=== PATIENT | female | born 1990 | race Caucasian/White ===

== ENCOUNTER 2016-06-28 01:16 | Emergency (ER) | payer SELFPAY ==
[~2016-06-28] VITALS: Ht 157.5 cm; Wt 80.0 kg
[~2016-06-28 01:16] MED LIST: CITA20 PO; IBUP600T26 PO; LEVO750T33 PO; LORA-474 PO; ONDA4; ORTHTAB3 PO; RANI1TAB5 PO
[2016-06-28 01:22] VITALS: BP 117/84; PULSE 88; RESP 18; TEMP 98.4; O2SAT 98
[2016-06-28 01:56] LABS: AUTOMATED NEUTROPHIL # 5.4 TH/MM3 (1.8-7.7); BASOPHIL # 0.1 TH/MM3 (0-0.2); EOSINOPHIL # 0.1 TH/MM3 (0-0.4); HEMATOCRIT 38.2 % (35.0-46.0); HEMO FLAGS DIFF FINAL; LYMPHOCYTE # 2.5 TH/MM3 (1.0-4.8); MEAN CELL VOLUME 86.1 FL (80.0-100.0); MEAN CORPUSCULAR HEMOGLOBIN 29.9 PG (27.0-34.0); MEAN CORPUSCULAR HGB CONC 34.7 % (32.0-36.0); MONO % 8.2 % (0.0-8.0); NEUT % 61.8 % (16.0-70.0); PLATELET COUNT 298 TH/MM3 (150-450); RED BLOOD COUNT 4.44 MIL/MM3 (4.00-5.30); RED CELL DISTRIBUTION WIDTH 12.7 % (11.6-17.2); WHITE BLOOD COUNT 8.8 TH/MM3 (4.0-11.0)
--- NOTE | 2016-06-28 02:16 | PD ---
HPI Chief Complaint: Psychiatric Symptoms Time Seen by Provider: 02:16 Travel History International Travel<30 days: No Contact w/Intl Traveler<30days: No Traveled to known affect area: No History of Present Illness HPI 26-year-old female presents to emergency department under Mccall act for psychiatric evaluation. Patient got into an argument with her boyfriend and said comments about wanting to kill herself. States that she has a history of depression and does not take medication. Patient states that she does not want to kill herself or anybody else. She states that she was angry and wants to go home. She denies illicit drug use. Reports occasional alcohol consumption. She reports no medical history. PFS Past Medical History Blood Disorders: No Anxiety: Yes Depression: Yes Cancer: No Cardiovascular Problems: No Diminished Hearing: No Endocrine: No GERD: Yes Implanted Vascular Access Dvce: Yes Musculoskeletal: No Neurologic: Yes Psychiatric: Yes Reproductive: No Respiratory: No Immunizations Current: Yes ?: Unknown LMP: 07/08/16 Past Surgical History Tonsillectomy: Yes Other Surgery: Yes (tonsilectomy) Social History Alcohol Use: Yes (occ) Tobacco Use: No Substance Use: No Allergies-Medications (Allergen,Severity, Reaction): Coded Allergies: No Known Allergies (Verified , 06/28/16) Reported Meds & Prescriptions Reported Meds & Active Scripts Active No Active Prescriptions or Reported Medications Review of Systems Except as stated in HPI: all other systems reviewed are Neg Physical Exam Narrative GENERAL: Well-nourished female patient, ambulatory and in no acute distress SKIN: Warm and dry. HEAD: Atraumatic. Normocephalic. EYES: Pupils equal and round. No scleral icterus. No injection or drainage. ENT: No nasal bleeding or discharge. Mucous membranes pink and moist. NECK: Trachea midline. No JVD. CARDIOVASCULAR: Regular rate and rhythm. No murmur appreciated. RESPIRATORY: No accessory muscle use. Clear to auscultation. Breath sounds equal bilaterally. GASTROINTESTINAL: Abdomen soft, non-tender, nondistended. Hepatic and splenic margins not palpable. MUSCULOSKELETAL: No obvious deformities. No clubbing. No cyanosis. No edema. NEUROLOGICAL: Awake and alert. No obvious cranial nerve deficits. Motor grossly within normal limits. Normal speech. Data Data Last Documented VS Vital Signs Date Time Temp Pulse Resp B/P Pulse Ox O2 Delivery O2 Flow Rate FiO2 06/28/16 01:30 97 18 06/28/16 01:22 98.4 117/84 98 Orders Complete Blood Count With Diff (06/28/16 01:19) Basic Metabolic Panel (Bmp) (06/28/16 01:19) Ed Urine Pregnancytest Poc (06/28/16 01:19) Psych Screen (06/28/16 01:19) Drug Screen, Random Urine (06/28/16 01:19) Alcohol (Ethanol) (06/28/16 01:19) Labs Laboratory Tests Test 06/28/16 06/28/16 01:40 02:25 White Blood Count 8.8 TH/MM3 Red Blood Count 4.44 MIL/MM3 Hemoglobin 13.3 GM/DL Hematocrit 38.2 % Mean Corpuscular Volume 86.1 FL Mean Corpuscular Hemoglobin 29.9 PG Mean Corpuscular Hemoglobin 34.7 % Concent Red Cell Distribution Width 12.7 % Platelet Count 298 TH/MM3 Mean Platelet Volume 7.5 FL Neutrophils (%) (Auto) 61.8 % Lymphocytes (%) (Auto) 28.0 % Monocytes (%) (Auto) 8.2 % Eosinophils (%) (Auto) 1.0 % Basophils (%) (Auto) 1.0 % Neutrophils # (Auto) 5.4 TH/MM3 Lymphocytes # (Auto) 2.5 TH/MM3 Monocytes # (Auto) 0.7 TH/MM3 Eosinophils # (Auto) 0.1 TH/MM3 Basophils # (Auto) 0.1 TH/MM3 CBC Comment DIFF FINAL Differential Comment Sodium Level 140 MEQ/L Potassium Level 4.0 MEQ/L Chloride Level 106 MEQ/L Carbon Dioxide Level 27.4 MEQ/L Anion Gap 7 MEQ/L Blood Urea Nitrogen 15 MG/DL Creatinine 0.85 MG/DL Estimat Glomerular Filtration 80 ML/MIN Rate Random Glucose 103 MG/DL Calcium Level 8.9 MG/DL Ethyl Alcohol Level LESS THAN 3 MG/DL Urine Opiates Screen NEG Urine Barbiturates Screen NEG Urine Amphetamines Screen NEG Urine Benzodiazepines Screen NEG Urine Cocaine Screen NEG Urine Cannabinoids Screen POS MDM Medical Decision Making Medical Screen Exam Complete: Yes Emergency Medical Condition: Yes Medical Record Reviewed: Yes Differential Diagnosis Mood disorder versus personality disorder versus adjustment reaction disorder Narrative Course 26-year-old female presents to emergency department for evaluation under Mccall act. Patient appears without distress. She is tearful and angry that she is here. Lab work is without acute concern. EtOH is less than 3. Toxicology is positive for cannabinoids. Patient is medically cleared to undergo psychiatric screening for further evaluation and disposition. Mental health screening discussed with the patient. Psychiatric screen ordered. Diagnosis Primary Impression: Adjustment disorder with depressed mood Scripts No Active Prescriptions or Reported Meds Condition: Meseret Angel Jun 28, 2016 02:16
[2016-06-28 02:21] LABS: ANION GAP 7 MEQ/L (5-15); BICARBONATE 27.4 MEQ/L (21.0-32.0); BLOOD UREA NITROGEN 15 MG/DL (7-18); CHLORIDE 106 MEQ/L (98-107); GLOMERULAR FILTRATION RATE 80 ML/MIN (>89); SODIUM (NA) 140 MEQ/L (136-145)
[2016-06-28 02:57] LABS: AMPHETAMINE, URINE NEG (NEG); BARBITURATES, URINE NEG (NEG); COCAINE, URINE NEG (NEG)
--- NOTE | 2016-06-28 09:33 | PD ---
History of Present Illness Chief Complaint: Psychiatric Symptoms Time Seen by Provider: 09:15 Travel History International Travel<30 Days: No Contact w/Intl Traveler<30days: No Known affected area: No Legal Status Legal Status: Mccall Act Mccall Act Signed By: Ramin Hartman History of Present Illness: History of Present Illness HPI 26-year-old female with no previous psychiatric history who presents to emergency department under Mccall act. As per the report the police responded to a call from a male who " was uncooperative" and reported he received text messages from the patient " that she was going to cut herself in an effort to end her life.As per Ed documentation reviewed and included here : " Patient got into an argument with her boyfriend and said comments about wanting to kill herself. States that she has a history of depression and does not take medication. Patient states that she does not want to kill herself or anybody else. She states that she was angry and wants to go home. She denies illicit drug use. Reports occasional alcohol consumption. " Patient seen in main ED. Awake, alert and oriented. Speech is clear and logical. There is no psychosis and no michelle. No suicidal or homicidal ideation. She reports that she was involved in an argument with her boyfriend ad " I just said that I was going to cut myself to make him feel what I was feeling. I had no plans to hurt myself or to hurt anyone else and I did not harm myself I just want to go home and go to work " EMR was reviewed. She has one previous visit to ED for alcohol intoxication. Current toxicology positive for cannabinoids. She is currently not in psychiatric treatment. PFSH Past Medical History Blood Disorders: No Anxiety: Yes Depression: Yes Cancer: No Cardiovascular Problems: No Diminished Hearing: No Endocrine: No GERD: Yes Implanted Vascular Access Dvce: Yes Musculoskeletal: No Neurologic: Yes Psychiatric: Yes Reproductive: No Respiratory: No Immunizations Current: Yes ?: Unknown LMP: 07/08/16 Past Surgical History Tonsillectomy: Yes Other Surgery: Yes (tonsilectomy) Psychiatric History Psychiatric History Hx Psychiatric Treatment: PT DENIES AT THIS TIME Has taken Celexa and Ativan in the pat. Last took 6 months ago. History of Inpatient Treatment: No Guns or firearms in home: No Social History Single female. Born in [place] Lives by herself. Has been in a relationship x 4 years. Works at [employer] x 12 years. Hx Alcohol Use: Yes (occ) Hx Tobacco Use: No Hx Substance Use: No (PT DENIES) Substance Use Type: Marijuana Hx of Substance Use Treatment: No Family Psychiatric History None reported. Allergies-Medications (Allergen,Severity, Reaction): Coded Allergies: No Known Allergies (Verified , 06/28/16) Reported Meds & Prescriptions Reported Meds & Active Scripts Active No Active Prescriptions or Reported Medications Review of Systems Except as stated in HPI: all other systems reviewed are Neg Exam Alert: Yes [place]: Person (ox4) Mood: Calm Affect: Euthymic Speech: Clear, Logical Eye Contact: Normal Memory Intact: Comment (not impaired) Hallucinations: Other (denies any) Delusions: No Suicidal: Ideation (denies any) Homicidal: Ideation (denies any) Insight/Judgement Fair. Not impaired MDM Medical Decision Making Medical Record Reviewed: Yes Assessment/Plan 26 year old female under a BA after her boyfriend contacted police. She sent him messages via text indicating she was thinking of hurting herself. This happened in context of an argument. She is denying any suicidal ideation, intent or plan and does not present imminent risk to herself or others. Cleared from psychiatric perspective for discharge. Discharge to home. I have recommended she contact her PCP who previously prescribed her medication for further treatment. Orders Complete Blood Count With Diff (06/28/16 01:19) Basic Metabolic Panel (Bmp) (06/28/16 01:19) Ed Urine Pregnancytest Poc (06/28/16 01:19) Psych Screen (06/28/16 01:19) Drug Screen, Random Urine (06/28/16 01:19) Alcohol (Ethanol) (06/28/16 01:19) Diet Regular Basic (06/28/16 Breakfast) Results Vital Signs Date Time Temp Pulse Resp B/P Pulse Ox O2 Delivery O2 Flow Rate FiO2 06/28/16 01:30 97 18 06/28/16 01:22 98.4 88 18 117/84 98 Laboratory Tests Test 06/28/16 06/28/16 01:40 02:25 White Blood Count 8.8 Red Blood Count 4.44 Hemoglobin 13.3 Hematocrit 38.2 Mean Corpuscular Volume 86.1 Mean Corpuscular Hemoglobin 29.9 Mean Corpuscular Hemoglobin 34.7 Concent Red Cell Distribution Width 12.7 Platelet Count 298 Mean Platelet Volume 7.5 Neutrophils (%) (Auto) 61.8 Lymphocytes (%) (Auto) 28.0 Monocytes (%) (Auto) 8.2 Eosinophils (%) (Auto) 1.0 Basophils (%) (Auto) 1.0 Neutrophils # (Auto) 5.4 Lymphocytes # (Auto) 2.5 Monocytes # (Auto) 0.7 Eosinophils # (Auto) 0.1 Basophils # (Auto) 0.1 CBC Comment DIFF FINAL Differential Comment Sodium Level 140 Potassium Level 4.0 Chloride Level 106 Carbon Dioxide Level 27.4 Anion Gap 7 Blood Urea Nitrogen 15 Creatinine 0.85 Estimat Glomerular Filtration 80 Rate Random Glucose 103 Calcium Level 8.9 Ethyl Alcohol Level LESS THAN 3 Urine Opiates Screen NEG Urine Barbiturates Screen NEG Urine Amphetamines Screen NEG Urine Benzodiazepines Screen NEG Urine Cocaine Screen NEG Urine Cannabinoids Screen POS Diagnosis Primary Impression: Adjustment disorder with depressed mood Psychiatrically Cleared: Yes Med/ Other Pt Specific Info: No Meds Exist/No RX given Prescriptions No Active Prescriptions or Reported Meds Condition: Stable Sonia Frank Jun 28, 2016 09:33
== END 2016-06-28 10:01 | disposition home or self-care (01) ==
LOC: NEPA 01:16
DX: F43.21 Adjustment disorder with depressed mood (principal); F41.8 Other specified anxiety disorders
CPT/HCPCS: 80048; 80307; 80320; 85025; 99284

== ENCOUNTER → 2016-10-15 | Outpatient (CLI) | payer MEDICAID ==
[~2016-10-15] MED LIST changes: -CITA20 PO; -IBUP600T26 PO; -LEVO750T33 PO; -LORA-474 PO; -ONDA4; -ORTHTAB3 PO; +PREN29TA PO; -RANI1TAB5 PO
== END ==
LOC: HPND 11:11
PROVIDERS: ATTEND Obstetrics & Gynecology
DX: Z36 Encounter for antenatal screening of mother (principal)
CPT/HCPCS: 36416; 76813

== ENCOUNTER 2016-10-26 23:01 | Emergency (ER) | payer MEDICAID ==
[~2016-10-26] VITALS: Ht 157.5 cm; Wt 75.0 kg
[2016-10-26 23:02] VITALS: BP 123/72; PULSE 78; RESP 16; TEMP 98.8; O2SAT 99
[2016-10-26] MEDS ORDERED: PREN29TA PO (23:58)
[2016-10-27 00:03] VITALS: BP 114/66; PULSE 76; RESP 18; O2SAT 99
--- NOTE | 2016-10-27 00:46 | PD ---
HPI Chief Complaint: Related Problem Time Seen by Provider: 00:43 Travel History International Travel<30 days: No Contact w/Intl Traveler<30days: No Traveled to known affect area: No History of Present Illness HPI The patient is a 26-year-old female, G1, P0, A0 that is 13 weeks and complains of bilateral suprapubic pain along with nausea and vomiting. She states she wants an ultrasound, she just had a normal ultrasound [address] Crowley is her OB physician. She denies any vaginal bleeding. The patient states he will not leave the hospital until she sees her baby's heart beat. The patient has a history of adjustment disorder and depressed mood. PFSH Past Medical History Blood Disorders: No Anxiety: Yes Depression: Yes Cancer: No Cardiovascular Problems: No Diminished Hearing: No Endocrine: No GERD: Yes Implanted Vascular Access Dvce: Yes Musculoskeletal: No Neurologic: Yes Psychiatric: Yes Reproductive: No Respiratory: No Immunizations Current: Yes Tetanus Vaccination: > 5 Years Influenza Vaccination: No ?: LMP: 07/19/16 : 1 Para: 0 Miscarriage: 0 : 0 Past Surgical History Tonsillectomy: Yes Other Surgery: Yes (tonsilectomy) Social History Alcohol Use: Yes (occ) Tobacco Use: No Substance Use: No (PT DENIES) Allergies-Medications (Allergen,Severity, Reaction): Coded Allergies: No Known Allergies (Verified , 10/26/16) Reported Meds & Prescriptions Reported Meds & Active Scripts Active Reported Plus Iron 29-1 mg ( Vit-Iron Carbonyl) 1 Tab Tab 1 Tab PO DAILY Review of Systems Except as stated in HPI: all other systems reviewed are Neg Physical Exam Narrative GENERAL: The patient is alert, oriented 3 in moderate apparent distress with her pelvic pain. Her vital signs are normal for . SKIN: Focused skin assessment warm/dry. HEAD: Atraumatic. Normocephalic. EYES: Pupils equal and round. No scleral icterus. No injection or drainage. ENT: No nasal bleeding or discharge. Mucous membranes pink and moist. NECK: Trachea midline. No JVD. CARDIOVASCULAR: Regular rate and rhythm. No murmur appreciated. RESPIRATORY: No accessory muscle use. Clear to auscultation. Breath sounds equal bilaterally. GASTROINTESTINAL: Abdomen soft, with bilateral suprapubic tenderness to direct palpation, nondistended. Hepatic and splenic margins not palpable. No guarding or rebound is present. MUSCULOSKELETAL: No obvious deformities. No clubbing. No cyanosis. No edema. NEUROLOGICAL: Awake and alert. No obvious cranial nerve deficits. Motor grossly within normal limits. Normal speech. PSYCHIATRIC: Appropriate mood and affect; insight and judgment normal. Data Data Last Documented VS Vital Signs Date Time Temp Pulse Resp B/P Pulse Ox O2 Delivery O2 Flow Rate FiO2 10/27/16 00:03 76 18 114/66 99 Room Air 10/26/16 23:02 98.8 Orders Urinalysis - C+S If Indicated (10/26/16 23:26) Ed Urine Pregnancytest Poc (10/26/16 23:26) Complete Blood Count With Diff (10/27/16 00:46) Basic Metabolic Panel (Bmp) (10/27/16 00:46) Us Pelvis (Ques Preg/Ectopic) (10/27/16 ) Beta Hcg (Quant/Titer) (10/27/16 00:46) Ondansetron Inj (Zofran Inj) (10/27/16 01:00) Sodium Chlor 0.9% 1000 Ml Inj (Ns 1000 M (10/27/16 01:00) Labs Laboratory Tests Test 10/27/16 10/27/16 00:52 01:40 White Blood Count 11.4 TH/MM3 Red Blood Count 3.85 MIL/MM3 Hemoglobin 11.3 GM/DL Hematocrit 33.2 % Mean Corpuscular Volume 86.2 FL Mean Corpuscular Hemoglobin 29.4 PG Mean Corpuscular Hemoglobin 34.0 % Concent Red Cell Distribution Width 13.5 % Platelet Count 278 TH/MM3 Mean Platelet Volume 8.6 FL Neutrophils (%) (Auto) 62.2 % Lymphocytes (%) (Auto) 26.5 % Monocytes (%) (Auto) 9.6 % Eosinophils (%) (Auto) 1.1 % Basophils (%) (Auto) 0.6 % Neutrophils # (Auto) 7.1 TH/MM3 Lymphocytes # (Auto) 3.0 TH/MM3 Monocytes # (Auto) 1.1 TH/MM3 Eosinophils # (Auto) 0.1 TH/MM3 Basophils # (Auto) 0.1 TH/MM3 CBC Comment DIFF FINAL Differential Comment Sodium Level 139 MEQ/L Potassium Level 4.0 MEQ/L Chloride Level 105 MEQ/L Carbon Dioxide Level 26.3 MEQ/L Anion Gap 8 MEQ/L Blood Urea Nitrogen 8 MG/DL Creatinine 0.61 MG/DL Estimat Glomerular Filtration 118 ML/MIN Rate Random Glucose 81 MG/DL Calcium Level 8.6 MG/DL Human Chorionic Gonadotropin, 12960 MIU/ML Quant Urine Color YELLOW Urine Turbidity HAZY Urine pH 7.0 Urine Specific [place] 1.017 Urine Protein NEG mg/dL Urine Glucose (UA) NEG mg/dL Urine Ketones NEG mg/dL Urine Occult Blood NEG Urine Nitrite NEG Urine Bilirubin NEG Urine Urobilinogen LESS THAN 2.0 MG/DL Urine Leukocyte Esterase TRACE Urine WBC 2 /hpf Urine Squamous Epithelial 4 /hpf Cells Urine Amorphous Sediment RARE Urine Bacteria RARE /hpf Urine Mucus FEW /lpf Microscopic Urinalysis Comment CULT NOT INDICATED MDM Medical Decision Making Medical Screen Exam Complete: Yes Emergency Medical Condition: Yes Medical Record Reviewed: Yes Differential Diagnosis Ligament pain, dehydration, electrolyte disorder, hyperemesis gravidarum Narrative Course The cut off for an emergency department ultrasound is 12 weeks in the patient is over 13 weeks. Nevertheless, the model technician came down and we showed the patient her baby's heart beat. The baby was moving around in the uterus and the baby is viable. Diagnosis Primary Impression: Pain of round ligament Additional Instructions: Follow-up with your applied technologist. As you saw on the ultrasound, the baby is viable and moving around vigorously. Disposition: 01 DISCHARGE HOME Condition: Stable Binu Anna MD Oct 27, 2016 00:46
[2016-10-27] MEDS ORDERED: ONDANSETRON HCL 4 MG/2 ML VIAL IV PUSH ONE (01:00)
[2016-10-27] MEDS ORDERED: SODIUM CHLOR 0.9% 1000 ML INJ 1,000 ML IV ONE (01:00)
[2016-10-27 01:25] LABS: AUTOMATED NEUTROPHIL # 7.1 TH/MM3 (1.8-7.7); BASOPHIL # 0.1 TH/MM3 (0-0.2); BASOPHIL % 0.6 % (0.0-2.0); EOSINOPHIL # 0.1 TH/MM3 (0-0.4); EOSINOPHIL % 1.1 % (0.0-4.0); HEMATOCRIT 33.2 % (35.0-46.0); HEMO FLAGS DIFF FINAL; LYMPH % 26.5 % (9.0-44.0); MEAN CELL VOLUME 86.2 FL (80.0-100.0); MEAN CORPUSCULAR HEMOGLOBIN 29.4 PG (27.0-34.0); MONO % 9.6 % (0.0-8.0); NEUT % 62.2 % (16.0-70.0); PLATELET COUNT 278 TH/MM3 (150-450); RED BLOOD COUNT 3.85 MIL/MM3 (4.00-5.30); RED CELL DISTRIBUTION WIDTH 13.5 % (11.6-17.2); WHITE BLOOD COUNT 11.4 TH/MM3 (4.0-11.0)
[2016-10-27 01:51] LABS: BICARBONATE 26.3 MEQ/L (21.0-32.0)
[2016-10-27 01:55] LABS: BACTERIA, URINE RARE /hpf; BLOOD, URINE NEG (NEG); COMMENT (UR) CULT NOT INDICATED; CULTURE IF INDICATED CULT NOT INDICATED; GLUCOSE,URINE NEG (NEG); KETONE, URINE NEG (NEG); MUCUS URINE FEW /lpf (OCC); NITRITE,URINE NEG (NEG); SQUAMOUS EPITHELIAL CELL URINE 4 /hpf (0-5); URINE COLOR YELLOW (YELLW/STRAW)
[2016-10-27 02:38] VITALS: BP 115/88
== END 2016-10-27 02:49 | disposition home or self-care (01) ==
LOC: NEPC 23:01
DX: O26.899 Other specified pregnancy related conditions, unspecified trimester (principal); R10.2 Pelvic and perineal pain; O21.9 Vomiting of pregnancy, unspecified; O99.341 Other mental disorders complicating pregnancy, first trimester; F43.20 Adjustment disorder, unspecified; F32.9 Major depressive disorder, single episode, unspecified; F41.9 Anxiety disorder, unspecified; K21.9 Gastro-esophageal reflux disease without esophagitis; Z3A.13 13 weeks gestation of pregnancy
CPT/HCPCS: 80048; 81001; 84702; 84703; 85025; 96374; 99284; J2405; J7030

== ENCOUNTER 2016-11-06 17:41 | Emergency (ER) | payer MEDICAID ==
[~2016-11-06] VITALS: Ht 157.5 cm; Wt 73.5 kg
[2016-11-06 19:05] VITALS: BP 99/52; PULSE 82
[2016-11-06 19:06] VITALS: BP 108/54; PULSE 77
[2016-11-06 19:07] VITALS: BP 108/54; PULSE 84
[2016-11-06 19:08] VITALS: BP 112/65; PULSE 100
[2016-11-06 19:15] VITALS: RESP 18
[2016-11-06 19:16] LABS: HEMATOCRIT 33.2 % (35.0-46.0); MEAN CELL VOLUME 87.8 FL (80.0-100.0); PLATELET COUNT 254 TH/MM3 (150-450); RED BLOOD COUNT 3.78 MIL/MM3 (4.00-5.30); RED CELL DISTRIBUTION WIDTH 13.4 % (11.6-17.2); REVIEW FLAG FINAL; WHITE BLOOD COUNT 9.8 TH/MM3 (4.0-11.0)
[2016-11-06 19:18] LABS: BLOOD, URINE NEG (NEG); COMMENT (UR) CULT NOT INDICATED; CULTURE IF INDICATED CULT NOT INDICATED; GLUCOSE,URINE NEG (NEG); KETONE, URINE NEG (NEG); MUCUS URINE FEW /lpf (OCC); NITRITE,URINE NEG (NEG); SQUAMOUS EPITHELIAL CELL URINE 5 /hpf (0-5); URINE COLOR YELLOW (YELLW/STRAW)
[2016-11-06 19:20] LABS: AMPHETAMINE, URINE NEG (NEG); BARBITURATES, URINE NEG (NEG); COCAINE, URINE NEG (NEG)
[2016-11-06 19:35] LABS: ALT (GPT) 24 U/L (10-53)
[2016-11-06 19:45] LABS: ALKALINE PHOSPHATASE 88 U/L (45-117); FREE T4 0.96 NG/DL (0.76-1.46); TOTAL BILIRUBIN ADULT 0.2 MG/DL (0.2-1.0)
[2016-11-06 20:00] VITALS: RESP 18
[2016-11-06 20:00] LABS: ANION GAP 9 MEQ/L (5-15); AST (GOT) 24 U/L (15-37); BLOOD UREA NITROGEN 9 MG/DL (7-18); CHLORIDE 105 MEQ/L (98-107); GLOMERULAR FILTRATION RATE 155 ML/MIN (>89); SODIUM (NA) 136 MEQ/L (136-145)
--- NOTE | 2016-11-06 20:52 | PD ---
HPI Chief Complaint Fainting spells recurrent this , she's passed out 5 times so far Date Seen: Nov 06, 2016 Travel History International Travel<30 Days: No Contact w/Intl Traveler<30Days: No Known Affected Area: No History of Present Illness HPI Patient is a 26-year-old white female at [address] Guerin for care presents complaining of another episode of fainting at work, she's passed out 5 times this so far. This was not a problem prior to she's never had it to be an issue she's had some nausea and vomiting sporadically is no consistent pattern to when she passes out she's done and at home sitting down she started work moving around she's is been no prodromal sign or symptom she denies headache, visual changes. heart tones 130s she has no vaginal symptoms or complaints Para: 0 : 1 History Past Medical History Narrative Medical Fainting episodes Social History Narrative Social History Urine screen positive for marijuana tonight Alcohol Use: No Tobacco Use: No Substance Abuse: No Allergies-Medications (Allergen,Severity, Reaction): Coded Allergies: No Known Allergies (Verified , 11/06/16) Home Meds Reported Medications Vit-Iron Carbonyl ( Plus Iron 29-1 mg)1 Tab Tab1 Tab PO DAILY #30 TAB Ref 0 10/26/16 Review of Systems General / Constitutional: No: Fever, Weight Gain, Chills, Other Eyes: No: Diploplia, Blurred Vision, Visual changes, Pain, Photophobia HENT: No: Headaches, Vertigo, Lightheadedness Cardiovascular: No: Irregular Rhythm, Chest Pain or Discomfort, Palpitations, Tachycardia, Syncope, Varicosities, Edema, Cyanosis Respiratory: No: Cough, Short of Breath, Other Gastrointestinal: No: Nausea, Vomiting, Diarrhea Genitourinary: No: Decreased Urinary Output, Oliguria Musculoskeletal: No: Limited ROM, Weakness, Cramping, Edema, Pain Skin: No Rash, No Itching, No Dryness, No Lumps, No Change in Pigmentation, No Change in Nails, No Alopecia, No Lesions Neurologic: Syncope, No: Weakness, Dizziness, Focal Abnormalities, Coordination Problem, Headache, Slurred Speech, Seizures Psychiatric: No: Depression, Suicidal Ideations, Homicidal Ideation Endocrine: No: Heat Intolerance, Cold Intolerance, Polydipsia, Polyuria, Other Physical Exam Vital Signs Date Time Temp Pulse Resp B/P Pulse Ox O2 Delivery O2 Flow Rate FiO2 11/06/16 20:00 18 11/06/16 19:15 18 11/06/16 19:08 100 112/65 11/06/16 19:07 84 108/54 11/06/16 19:06 77 108/54 11/06/16 19:05 82 99/52 Narrative GENERAL: Well-nourished, well-developed patient. SKIN: Warm and dry. HEAD: Normocephalic and atraumatic. EYES: No scleral icterus. No injection or drainage. ENT: No nasal drainage noted. Mucous membranes pink. Airway patent. NECK: Supple, trachea midline. No JVD. CARDIOVASCULAR: Regular rate and rhythm without murmurs, gallops, or rubs. RESPIRATORY: Breath sounds equal bilaterally. No accessory muscle use. BREASTS: Bilateral exam showed no masses , no retractions, no nipple discharge. ABDOMEN/GI: Abdomen soft, non-tender, bowel sounds present, no rebound, no guarding Gravid to [-16] weeks size Fundal Height: [-16] GENITOURINARY: FHT's: 130s EXTREMITIES: No cyanosis or edema. BACK: Nontender without obvious deformity. No CVA tenderness. NEUROLOGICAL: Awake and alert. Motor and sensory grossly within normal limits. Five out of 5 muscle strength in all muscle groups. Normal speech. Data Data Orders Vital Signs (Adult) .ON ADMISSION (11/06/16 18:31) ^ Labor Status (11/06/16 18:31) Urinalysis - C+S If Indicated (11/06/16 18:31) ^ Hydration (11/06/16 18:31) Cbc No Diff, Includes Plts (11/06/16 18:31) Comprehensive Metabolic Panel (11/06/16 18:31) Ob/Psych Drug Screen, Urine (11/06/16 18:31) Thyroid Stimulating Hormone (11/06/16 18:33) Free Thyroxine (T4) (11/06/16 18:33) Electrocardiogram (11/06/16 ) Ur Bath Salts (11/06/16 18:45) Ur Heroin (11/06/16 18:45) Ur K2 Spice (11/06/16 18:45) Ur Ecstasy (11/06/16 18:45) Phencyclidine Urine (Pcp) (11/06/16 18:45) Ranitidine Liq (Zantac Liq) (11/06/16 20:30) Labs EKG shows sinus rhythm with nonspecific T-wave abnormality Laboratory Tests Test 11/06/16 18:45 White Blood Count 9.8 Red Blood Count 3.78 Hemoglobin 11.0 Hematocrit 33.2 Mean Corpuscular Volume 87.8 Mean Corpuscular Hemoglobin 29.0 Mean Corpuscular Hemoglobin 33.0 Concent Red Cell Distribution Width 13.4 Platelet Count 254 Mean Platelet Volume 8.2 Urine Color YELLOW Urine Turbidity HAZY Urine pH 7.0 Urine Specific [place] 1.021 Urine Protein TRACE Urine Glucose (UA) NEG Urine Ketones NEG Urine Occult Blood NEG Urine Nitrite NEG Urine Bilirubin NEG Urine Urobilinogen LESS THAN 2.0 Urine Leukocyte Esterase MOD Urine RBC 1 Urine WBC 4 Urine Squamous Epithelial 5 Cells Urine Amorphous Sediment RARE Urine Mucus FEW Microscopic Urinalysis Comment CULT NOT INDICATED Sodium Level 136 Potassium Level 4.0 Chloride Level 105 Carbon Dioxide Level 22.0 Anion Gap 9 Blood Urea Nitrogen 9 Creatinine 0.48 Estimat Glomerular Filtration 155 Rate Random Glucose 84 Calcium Level 9.0 Total Bilirubin 0.2 Aspartate Amino Transf 24 (AST/SGOT) Alanine Aminotransferase 24 (ALT/SGPT) Alkaline Phosphatase 88 Total Protein 6.2 Albumin 2.7 Free Thyroxine 0.96 Thyroid Stimulating Hormone 0.501 3rd Gen Urine Opiates Screen NEG Urine Barbiturates Screen NEG Urine Amphetamines Screen NEG Urine Benzodiazepines Screen NEG Urine Cocaine Screen NEG Urine Cannabinoids Screen POS MDM Interpretation(s) Patient is 26-year-old white female at 15-[address] Guerin for care who presents complaining of multiple fainting episodes. She's had 5 of these episodes since . And none prior to , she has no history of any other major medical illnesses, neurologic problems, seizure activity. Patient states that she feels flushed and hot and then gets dizzy and may pass out or get weak she has occasional nausea and vomiting but no other symptoms. Heart tones 130s, no other obstetric or vaginal problems noted no abdominal pain, no bleeding or leakage etc. patient's labs WITHIN normal limits normal CBC CMP and urinalysis[ screen did show marijuana], TSH T4 normal. EKG showed sinus rhythm with nonspecific T-wave abnormality did not appear to be a causative point in this syncope workup. This type of syncope is probably neurocardiogenic stimulated by related hormones however there could be other etiologies that we have not uncovered Plan I explained to the patient that we've done as much as workup as we can do in the obstetric unit for this problem. And that she needs to rest more at home, stay hydrated better, eat small frequent meals, and if this persists or worsens then she needs to ask her OB provider to refer her to the neurologist and germination testing manager for further evaluations. Patient requested an acid today she was given the liquid Zantac and told to take the [id number] Zantac 150 as needed Diagnosis Diagnosis: Primary Impression: Syncope and collapse Disposition: 01 DISCHARGE HOME Condition: Stable Ross Cocrhan II, MD Nov 06, 2016 20:52
[2016-11-06] MEDS ORDERED: FAMOTIDINE 20 MG TAB PO ONE (21:00)
--- NOTE | 2016-11-07 04:58 | EKG ---
Date Performed: 11/06/2016 Time Performed: 20:33:10 PTAGE: 26 years EKG: Sinus rhythm WITH SINUS ARRHYTHMIA NONSPECIFIC T-WAVE ABNORMALITY BORDERLINE ECG COMPARED TO PRIOR ELECTROCARDIOG AJITH, Rate has slowed. PREVIOUS TRACING : 05/07/2012 19.27 DOCTOR: Gil Black Interpretating Date/Time 11/07/2016 04:56:50
[2016-11-13 07:27] LABS: BATH SALTS (MDPV) UR NEG (NEG); ECSTASY (MDMA) UR NEG (NEG); GABAPENTIN UR NEG (NEG); HEROIN (6-ACETYLMORPHINE) UR NEG (NEG); HYDROMORPHONE U NEG (NEG); K2 SPICE UR NEG (NEG); OBMETHADONE UR NEG (NEG); OXYCODONE (PERCODAN) NEG (NEG); PHENCYCLIDINE URINE NEG (NEG)
== END 2016-11-06 21:00 | disposition home or self-care (01) ==
LOC: HOBED 17:41
DX: O26.899 Other specified pregnancy related conditions, unspecified trimester (principal); R55 Syncope and collapse; Z3A.15 15 weeks gestation of pregnancy; Z79.899 Other long term (current) drug therapy
CPT/HCPCS: 80053; 80307; 81001; 84439; 84443; 85027; 93005; 99284; G0481

== ENCOUNTER 2017-01-20 09:26 | Emergency (ER) | payer MEDICAID ==
[~2017-01-20] VITALS: Ht 157.5 cm; Wt 74.0 kg
[2017-01-20 09:27] VITALS: BP 116/57; PULSE 76; RESP 14; TEMP 98.3; O2SAT 99
[2017-01-20] MEDS ORDERED: PROMETHAZINE HCL 25 MG TAB PO ONE (10:30)
[2017-01-20] MEDS ORDERED: PROM25TA10 PO (10:33)
--- NOTE | 2017-01-20 10:33 | PD ---
HPI Chief Complaint: GI Complaint Time Seen by Provider: 10:13 Travel History International Travel<30 days: No Contact w/Intl Traveler<30days: No Traveled to known affect area: No History of Present Illness HPI 26-year-old female complaining of nausea vomiting diarrhea. Patient states that she ate [place] food yesterday evening with a horse wrangler. Patient states that both of them having nausea vomiting diarrhea abdominal cramping. Patient denies any blood in the vomitus or the stool. Patient denies any fever chills. Patient is 26 weeks . Patient has been seen by help desk administrator for this . Patient denies any vaginal discharge or bleeding. Patient denies any dysuria or frequency. Patient states that the fetus is active. PFSH Past Medical History Medical History: Denies Significant Hx Hx Anticoagulant Therapy: No Blood Disorders: No Anxiety: Yes Depression: Yes Cancer: No Cardiovascular Problems: No Chemotherapy: No Cerebrovascular Accident: No Diabetes: No Diminished Hearing: No Endocrine: No GERD: Yes Implanted Vascular Access Dvce: Yes Musculoskeletal: No Neurologic: Yes Psychiatric: Yes Reproductive: No Respiratory: No Immunizations Current: Yes Tetanus Vaccination: Unknown ?: LMP: 07/19/16 : 1 Para: 0 Miscarriage: 0 : 0 Past Surgical History Hysterectomy: No Tonsillectomy: Yes Other Surgery: Yes (tonsilectomy) Social History Alcohol Use: No Tobacco Use: No Substance Use: No Allergies-Medications (Allergen,Severity, Reaction): Coded Allergies: No Known Allergies (Verified , 01/20/17) Reported Meds & Prescriptions Reported Meds & Active Scripts Active No Active Prescriptions or Reported Medications Review of Systems General / Constitutional: No: Fever Eyes: No: Visual changes HENT: No: Headaches Cardiovascular: No: Chest Pain or Discomfort Respiratory: No: Shortness of Breath Gastrointestinal: Positive: Nausea, Vomiting, Diarrhea, Abdominal Pain Genitourinary: No: Dysuria Musculoskeletal: No: Pain Skin: No Rash Neurologic: No: Weakness Psychiatric: No: Depression Endocrine: No: Polydipsia Hematologic/Lymphatic: No: Easy Bruising Physical Exam Narrative GENERAL: Well-nourished, well-developed patient. SKIN: Focused skin assessment warm/dry. HEAD: Normocephalic. EYES: No scleral icterus. No injection or drainage. NECK: Supple, trachea midline. No JVD or lymphadenopathy. CARDIOVASCULAR: Regular rate and rhythm without murmurs, gallops, or rubs. RESPIRATORY: Breath sounds equal bilaterally. No accessory muscle use. GASTROINTESTINAL: Abdomen soft, nondistended. Patient has mild diffuse tenderness over the abdomen. Fundal height above the umbilicus. MUSCULOSKELETAL: No cyanosis, or edema. BACK: Nontender without obvious deformity. No CVA tenderness. Neurologic exam normal. Data Data Last Documented VS Vital Signs Date Time Temp Pulse Resp B/P (MAP) Pulse Ox O2 Delivery O2 Flow Rate FiO2 01/20/17 09:27 98.3 76 14 116/57 (76) 99 Orders Orders Promethazine (Phenergan) (01/20/17 10:30) [facility] Medical Decision Making Medical Screen Exam Complete: Yes Emergency Medical Condition: Yes Differential Diagnosis Differential diagnosis including gastroenteritis, gastritis, PUD, pancreatitis, cholecystitis, colitis, UTI, pyelonephritis, electrolyte imbalance, dehydration. Narrative Course 26-year-old female with abdominal cramping, nausea vomiting diarrhea. Patient is 26 weeks . Patient clinically is not dehydrated. Phenergan 25 mg by mouth given. Procedures Procedure Narrative Emergency Department Pelvic ultrasound was performed with patient consent. The curvilinear probe was used in the transverse and sagittal views within the suprapubic region revealing single intrauterine . heart rate was 146. Fetus active. Diagnosis Primary Impression: Gastroenteritis Patient Instructions: General Instructions Additional Instructions: Phenergan as needed for nausea vomiting. Clear fluids today and advance diet tomorrow. Follow-up with personal physician. Return if persistent problem or worse. Med/Other Pt SpecificInfo: Prescription(s) given Scripts Promethazine (Phenergan) 25 Mg Tablet 25 MG PO Q6H Y for NAUSEA OR VOMITING, #12 TAB 0 Refills Prov: Rayray Mercado MD 01/20/17 Disposition: 01 DISCHARGE HOME Condition: Stable Rayray Mercado MD Jan 20, 2017 10:33
== END 2017-01-20 10:53 | disposition home or self-care (01) ==
LOC: NEPD 09:26
DX: O26.892 Other specified pregnancy related conditions, second trimester (principal); K52.9 Noninfective gastroenteritis and colitis, unspecified; O99.342 Other mental disorders complicating pregnancy, second trimester; F41.9 Anxiety disorder, unspecified; F32.9 Major depressive disorder, single episode, unspecified; K21.9 Gastro-esophageal reflux disease without esophagitis; Z3A.26 26 weeks gestation of pregnancy
CPT/HCPCS: 99284; Q0169

== ENCOUNTER 2017-02-01 14:04 | Emergency (ER) | payer MEDICAID ==
[~2017-02-01 14:04] MED LIST changes: -PREN29TA PO; +PROM25TA10 PO
[2017-02-01] MEDS ORDERED: METOCLOPRAMIDE HCL 10 MG/2 ML VIAL IV PUSH ONE (14:30)
[2017-02-01] MEDS ORDERED: ONDANSETRON HCL 4 MG/2 ML VIAL IV ONE (14:30)
[2017-02-01] MEDS ORDERED: ZOFR4TAB3 SL (14:37)
--- NOTE | 2017-02-01 14:37 | PD ---
HPI Chief Complaint Nausea and vomiting Date Seen: Feb 01, 2017 Time Seen: 14:20 Travel History International Travel<30 Days: No Contact w/Intl Traveler<30Days: No Known Affected Area: No History of Present Illness HPI 26-year-old white female at [address] Guerin for care. She presents with 2 day history nausea and vomiting "can't keep anything down" who had Phenergan at home but didn't use that because it makes her very drowsy and so had no other medication. She denies leakage of bleeding or contractions. heart rate tracing is reactive and no contractions seen Weeks Gestation: 27 Para: 0 : 1 History Social History Alcohol Use: No Tobacco Use: No Substance Abuse: No Allergies-Medications (Allergen,Severity, Reaction): Coded Allergies: No Known Allergies (Verified , 01/20/17) Home Meds Active Scripts Ondansetron Odt (Zofran Odt) 4 Mg Tab, 4 MG SL Q8HR Y for Nausea/Vomiting, #12 TAB 1 Refill Prov:Ross Cochran II, MD 02/01/17 Promethazine (Phenergan) 25 Mg Tablet, 25 MG PO Q6H Y for NAUSEA OR VOMITING, # 12 TAB 0 Refills Prov:Rayray Mercado MD 01/20/17 Review of Systems General / Constitutional: No: Fever, Weight Gain, Chills, Other Eyes: No: Diploplia, Blurred Vision, Visual changes, Pain, Photophobia HENT: No: Headaches, Vertigo, Lightheadedness Cardiovascular: No: Irregular Rhythm, Chest Pain or Discomfort, Palpitations, Tachycardia, Syncope, Varicosities, Edema, Cyanosis Respiratory: No: Cough, Short of Breath, Other Gastrointestinal: Nausea, Vomiting, No: Diarrhea Genitourinary: No: Decreased Urinary Output, Oliguria Musculoskeletal: No: Limited ROM, Weakness, Cramping, Edema, Pain Skin: No Rash, No Itching, No Dryness, No Lumps, No Change in Pigmentation, No Change in Nails, No Alopecia, No Lesions Neurologic: No: Weakness, Dizziness, Syncope, Focal Abnormalities, Coordination Problem, Headache, Slurred Speech, Seizures Psychiatric: No: Depression, Suicidal Ideations, Homicidal Ideation Endocrine: No: Heat Intolerance, Cold Intolerance, Polydipsia, Polyuria, Other Physical Exam Narrative GENERAL: Well-nourished, well-developed patient. SKIN: Warm and dry. HEAD: Normocephalic and atraumatic. EYES: No scleral icterus. No injection or drainage. ENT: No nasal drainage noted. Mucous membranes pink. Airway patent. NECK: Supple, trachea midline. No JVD. CARDIOVASCULAR: Regular rate and rhythm without murmurs, gallops, or rubs. RESPIRATORY: Breath sounds equal bilaterally. No accessory muscle use. BREASTS: Bilateral exam showed no masses , no retractions, no nipple discharge. ABDOMEN/GI: Abdomen soft, non-tender, bowel sounds present, no rebound, no guarding Gravid to [27-] weeks size Fundal Height: [27-] GENITOURINARY: External Genitalia: intact and normal in appearance BUS glands: [-] Cervix: [post-] Dilatation: [0-] Effacement: [0-] Station: [-3] Membranes: [intact ] Uterine Contractions: [none-] FHT's: Category: [-1] Baseline: [-133] Reactive: [-yes] Variability: [-mod] Decels: [-none] EXTREMITIES: No cyanosis or edema. BACK: Nontender without obvious deformity. No CVA tenderness. NEUROLOGICAL: Awake and alert. Motor and sensory grossly within normal limits. Five out of 5 muscle strength in all muscle groups. Normal speech. Data Data Orders Orders Vital Signs (Adult) .ON ADMISSION (02/01/17 14:28) ^ Labor Status (02/01/17 14:28) Urinalysis - C+S If Indicated (02/01/17 14:28) Lactated Ringer's 1000 Ml Inj (Lr 1000 M (02/01/17 14:28) Ondansetron Inj (Zofran Inj) (02/01/17 14:30) Metoclopramide Inj (Reglan Inj) (02/01/17 14:30) Labs urine dip negative MDM Interpretation(s) Patient 26-year-old white female at [address] Guerin for care presents with nausea and vomiting for 2 days. Was not able take Phenergan at home due to drowsiness. heart rate tracing is reactive and no contractions her cervix closed high her urine dip negative here on OB ED plan to hydrate with IV fluid and IV Zofran and Reglan. Home with a Zofran prescription for home use Plan Will discharge after hydration and medication today for nausea vomiting home with Zofran ODT prescription and that to see Dr. Guerin this week if symptoms persist Diagnosis Diagnosis: Primary Impression: Nausea and vomiting of , antepartum Disposition: 01 DISCHARGE HOME Condition: Stable Scripts Ondansetron Odt (Zofran Odt) 4 Mg Tab 4 MG SL Q8HR Y for Nausea/Vomiting, #12 TAB 1 Refill Prov: Ross Cochran II, MD 02/01/17 Ross Cochran II, MD Feb 01, 2017 14:37
[2017-02-01] MEDS: LACTATED RINGER'S 1000 ML INJ 1,000 ML IV SCH ×2 (15:00→15:44)
[2017-02-01 15:12] LABS: BACTERIA, URINE RARE /hpf; BLOOD, URINE NEG (NEG); COMMENT (UR) CULT NOT INDICATED; CULTURE IF INDICATED CULT NOT INDICATED; GLUCOSE,URINE NEG (NEG); KETONE, URINE NEG (NEG); NITRITE,URINE NEG (NEG); SQUAMOUS EPITHELIAL CELL URINE 3 /hpf (0-5); URINE COLOR LIGHT-YELLOW (YELLW/STRAW)
== END 2017-02-01 16:12 | disposition home or self-care (01) ==
LOC: HOBED 14:04
DX: O21.9 Vomiting of pregnancy, unspecified (principal); Z3A.27 27 weeks gestation of pregnancy
CPT/HCPCS: 81001; 96361; 96374; 96375; 99284; J2405; J2765; J7120

== ENCOUNTER 2017-02-18 19:44 | Observation (INO) | payer MEDICAID ==
[~2017-02-18 19:44] MED LIST changes: +ZOFR4TAB3 SL
--- NOTE | 2017-02-18 20:20 | PD ---
HPI Chief Complaint right flank pain for 2 days Date Seen: Feb 18, 2017 Time Seen: 19:50 Travel History International Travel<30 Days: No Contact w/Intl Traveler<30Days: No Known Affected Area: No History of Present Illness HPI right flank for 2 days Weeks Gestation: 29 Para: 0 : 1 Last Menstrual Period: Feb 18, 2017 History Past Medical History Narrative Medical kidney stones, 1 year ago. Obstetric History Obstetric History primagravid Past Surgical History Narrative Surgical tonsils Family History Family History: Negative Social History Alcohol Use: No Tobacco Use: No Substance Abuse: No Allergies-Medications (Allergen,Severity, Reaction): Coded Allergies: No Known Allergies (Verified , 01/20/17) Home Meds Active Scripts Ondansetron Odt (Zofran Odt) 4 Mg Tab, 4 MG SL Q8HR Y for Nausea/Vomiting, #12 TAB 1 Refill Prov:Ross Cochran II, MD 02/01/17 Promethazine (Phenergan) 25 Mg Tablet, 25 MG PO Q6H Y for NAUSEA OR VOMITING, # 12 TAB 0 Refills Prov:Rayray Mercado MD 01/20/17 Review of Systems Genitourinary: Urgency, Frequency, Other (right flank pain) Physical Exam Narrative GENERAL: Well-nourished, well-developed patient. SKIN: Warm and dry. HEAD: Normocephalic and atraumatic. EYES: No scleral icterus. No injection or drainage. ENT: No nasal drainage noted. Mucous membranes pink. Airway patent. NECK: Supple, trachea midline. No JVD. CARDIOVASCULAR: Regular rate and rhythm without murmurs, gallops, or rubs. RESPIRATORY: Breath sounds equal bilaterally. No accessory muscle use. BREASTS: Bilateral exam showed no masses , no retractions, no nipple discharge. ABDOMEN/GI: Abdomen soft, non-tender, bowel sounds present, no rebound, no guarding Gravid to 29weeks size Fundal Height: [-] GENITOURINARY: External Genitalia: intact and normal in appearance BUS glands: [-] Cervix: [-] Dilatation: closed Effacement: 20 % Station: [-] Presentation: vtx Membranes: [intact Uterine Contractions: no FHT's: Category: 1 Baseline: [-] Reactive: [-] Variability: [-] Decels: [-] EXTREMITIES: No cyanosis or edema. BACK: Nontender without obvious deformity. right flank pain severe NEUROLOGICAL: Awake and alert. Motor and sensory grossly within normal limits. Five out of 5 muscle strength in all muscle groups. Normal speech. Data Data Vital Signs Reviewed: Yes Orders Orders Vital Signs (Adult) .ON ADMISSION (02/18/17 20:09) ^ Labor Status (02/18/17 20:09) Urinalysis - C+S If Indicated (02/18/17 20:09) Diet Regular Basic (02/19/17 Breakfast) Cbc No Diff, Includes Plts (02/18/17 20:09) Comprehensive Metabolic Panel (02/18/17 20:09) Lactated Ringer's 1000 Ml Inj (Lr 1000 M (02/18/17 20:09) Ob/Psych Drug Screen, Urine (02/18/17 20:09) Us Kidney/Renal/Bladder (02/18/17 ) MDM Interpretation(s) right flank pain await labs Narrative Course / MDM renal us history of stone Plan pain control, diagnosis of pyelonephritis and pt needs antibiotics and pain meds , hydration Critical Care Time (mins): 20 Diagnosis Diagnosis: Primary Impression: Pyelonephritis Condition: Patrick Avila MD Feb 18, 2017 20:19
[2017-02-18] MEDS: LACTATED RINGER'S 1000 ML INJ 1,000 ML IV SCH ×2 (20:29→23:12)
[2017-02-18] MEDS ORDERED: MORPHINE SULFATE 8 MG/ML INJ IV PUSH ONE (20:30)
[2017-02-18 20:32] LABS: HEMATOCRIT 32.6 % (35.0-46.0); MEAN CELL VOLUME 86.4 FL (80.0-100.0); MEAN CORPUSCULAR HEMOGLOBIN 29.7 PG (27.0-34.0); MEAN CORPUSCULAR HGB CONC 34.3 % (32.0-36.0); PLATELET COUNT 287 TH/MM3 (150-450); RED BLOOD COUNT 3.78 MIL/MM3 (4.00-5.30); RED CELL DISTRIBUTION WIDTH 12.6 % (11.6-17.2); REVIEW FLAG FINAL; WHITE BLOOD COUNT 15.3 TH/MM3 (4.0-11.0)
[2017-02-18 20:37] LABS: BLOOD, URINE TRACE (NEG); COMMENT (UR) CULTURE INDICATED; CULTURE IF INDICATED CULTURE INDICATED; GLUCOSE,URINE NEG (NEG); KETONE, URINE NEG (NEG); NITRITE,URINE NEG (NEG); URINE COLOR LIGHT-YELLOW (YELLW/STRAW)
[2017-02-18 20:42] VITALS: BP 100/56; PULSE 85; RESP 24
[2017-02-18 20:46] VITALS: BP 102/61; PULSE 87; RESP 24
[2017-02-18 20:52] LABS: ANION GAP 11 MEQ/L (5-15); AST (GOT) 10 U/L (15-37); BLOOD UREA NITROGEN 9 MG/DL (7-18); CHLORIDE 107 MEQ/L (98-107); GLOMERULAR FILTRATION RATE 115 ML/MIN (>89); POTASSIUM 3.6 MEQ/L (3.5-5.1); SODIUM (NA) 138 MEQ/L (136-145)
[2017-02-18 20:55] LABS: ALKALINE PHOSPHATASE 140 U/L (45-117); ALT (GPT) 18 U/L (10-53); TOTAL BILIRUBIN ADULT 0.2 MG/DL (0.2-1.0)
--- NOTE | 2017-02-18 21:25 | RADRPT ---
EXAM DATE/TIME: 02/18/2017 20:32 [facility] COMPARISON: No previous studies available for comparison. INDICATIONS : Flank pain. MEDICAL HISTORY : Gastroesophageal reflux disease. Glasses. Depression. Anxiety. Claustrophobia. SURGICAL HISTORY : Tonsillectomy. ENCOUNTER: Subsequent ACUITY: 1 day PAIN SCORE: 7/10 LOCATION: Bilateral flank MEASUREMENTS: RIGHT KIDNEY: 10.7 x 6.1 x 5.1 cm LEFT KIDNEY: 11.5 x 4.5 x 5.1 cm FINDINGS: RIGHT KIDNEY: Renal cortex is normal in thickness and echotexture. No hydronephrosis, stone, or mass. LEFT KIDNEY: Renal cortex is normal in thickness and echotexture. No hydronephrosis, stone, or mass. BLADDER: Within normal limits given the degree of distension. CONCLUSION: Normal examination for a patient of this age. Cooper Marquez MD on February 18, 2017 at 21:24 Board Certified Radiologist. This report was verified electronically.
[2017-02-18 22:07] VITALS: RESP 18
[2017-02-18 22:08] VITALS: BP 109/66; PULSE 91
[2017-02-18] MEDS ORDERED: ACETAMINOPHEN 325 MG TAB PO PRN (22:15)
[2017-02-18] MEDS ORDERED: oxyCODONE/ACETAMINOPHEN 5 MG/325 MG TAB PO PRN (22:15)
[2017-02-18] MEDS ORDERED: SODIUM CHLORIDE 0.9% FLUSH 10 ML FLUSH IV FLUSH PRN (22:15)
[2017-02-18] MEDS: cefTRIAXone INJ 2,000 MG in SODIUM CHLORIDE 0.9% INJ 100 ML IV SCH (23:12)
[2017-02-18] MEDS: ZOLPIDEM TARTRATE 5 MG TAB PO PRN (23:17)
[2017-02-19] VITALS (13 sets, daily range): BP systolic 87–112; BP diastolic 44–65; PULSE 102–149; RESP 18; TEMP 97.8–98.9
[2017-02-19] MEDS: oxyCODONE/ACETAMINOPHEN 5 MG/325 MG TAB PO PRN ×3 (02:46→17:14)
[2017-02-19] MEDS: ONDANSETRON ODT 4 MG TAB PO PRN (02:46)
--- NOTE | 2017-02-19 07:32 | PD.OB.ANTE ---
Subjective Diagnosis: (1) 30 weeks gestation of Diagnosis: Principal (2) Pyelonephritis Diagnosis: Principal Antepartum ROS: Reports: Other (flank pain improving) Objective Vital Signs Vital Signs Date Time Temp Pulse Resp B/P (MAP) Pulse Ox O2 Delivery O2 Flow Rate FiO2 02/19/17 06:00 98.2 18 02/19/17 05:56 107 89/52 (64) 02/18/17 22:08 91 109/66 (80) 02/18/17 22:07 18 02/18/17 20:46 102/61 (75) 02/18/17 20:46 87 24 02/18/17 20:42 85 24 100/56 (71) Lab & Micro Results Test 02/18/17 20:11 White Blood Count 15.3 TH/MM3 Red Blood Count 3.78 MIL/MM3 Hemoglobin 11.2 GM/DL Hematocrit 32.6 % Mean Corpuscular Volume 86.4 FL Mean Corpuscular Hemoglobin 29.7 PG Mean Corpuscular Hemoglobin Concent 34.3 % Red Cell Distribution Width 12.6 % Platelet Count 287 TH/MM3 Mean Platelet Volume 8.0 FL Urine Color LIGHT-YELLOW Urine Turbidity CLEAR Urine pH 8.0 Urine Specific [place] 1.005 Urine Protein TRACE mg/dL Urine Glucose (UA) NEG mg/dL Urine Ketones NEG mg/dL Urine Occult Blood TRACE Urine Nitrite NEG Urine Bilirubin NEG Urine Urobilinogen LESS THAN 2.0 MG/DL Urine Leukocyte Esterase MOD Urine RBC 3 /hpf Urine WBC 25 /hpf Microscopic Urinalysis Comment CULTURE INDICATED Blood Urea Nitrogen 9 MG/DL Creatinine 0.62 MG/DL Random Glucose 76 MG/DL Total Protein 6.5 GM/DL Albumin 2.4 GM/DL Calcium Level 8.6 MG/DL Alkaline Phosphatase 140 U/L Aspartate Amino Transf (AST/SGOT) 10 U/L Alanine Aminotransferase (ALT/SGPT) 18 U/L Total Bilirubin 0.2 MG/DL Sodium Level 138 MEQ/L Potassium Level 3.6 MEQ/L Chloride Level 107 MEQ/L Carbon Dioxide Level 20.0 MEQ/L Anion Gap 11 MEQ/L Estimat Glomerular Filtration Rate 115 ML/MIN Urine Opiates Screen NEG Urine Barbiturates Screen NEG Urine Amphetamines Screen NEG Urine Benzodiazepines Screen NEG Urine Cocaine Screen NEG Urine Cannabinoids Screen POS Date/Time Source Procedure Growth Status 02/18/17 20:11 Urine Clean Catch Urine Culture Pending Worksheet Physical Exam GENERAL: Well-nourished, well-developed patient. CARDIOVASCULAR: Regular rate and rhythm without murmurs, gallops, or rubs. RESPIRATORY: Breath sounds equal bilaterally. No accessory muscle use. ABDOMEN/GI: Abdomen soft, non-tender. Fundus: [-] GENITOURINARY: External Genitalia: intact and normal in appearance Cervix: [-] Dilatation:cl Effacement: 20 Station: [-] Presentation: [-] Membranes: intact Uterine Contractions: [-] FHT's: Category: 1 Baseline: [-] Reactive: [-] Variability: [-] Decels: [-] EXTREMITIES: No cyanosis or edema, non-tender, without signs of DVT. Assessment and Plan Problem List: (1) 30 weeks gestation of ICD Codes: Z3A.30 - 30 weeks gestation of (2) Pyelonephritis ICD Codes: N12 - Tubulo-interstitial nephritis, not specified as acute or chronic Status: Acute Assessment and Plan continue pain meds and rocephin await CX and observe Patrick Crowley MD Feb 19, 2017 07:32
[2017-02-19] MEDS: DOCUSATE SODIUM 100 MG CAP PO SCH (08:53)
[2017-02-19] MEDS ORDERED: SODIUM CHLORIDE 0.9% FLUSH 10 ML FLUSH IV FLUSH SCH (09:00)
[2017-02-19] MEDS ORDERED: PANTOPRAZOLE SOD 40 MG DELAYED RELEASE TAB PO SCH (10:00)
[2017-02-19] MEDS: LACTATED RINGER'S 1000 ML INJ 1,000 ML IV SCH ×2 (12:25→20:09)
[2017-02-19] MEDS ORDERED: PROMETHAZINE INJ 25 MG/ML VIAL IM ONE (14:00)
[2017-02-19] MEDS: ZANTAC 150MG PO SCH (15:04)
[2017-02-19] MEDS ORDERED: ACETAMINOPHEN 325 MG TAB PO PRN (17:15)
[2017-02-19] MEDS: ZOLPIDEM TARTRATE 5 MG TAB PO PRN (21:53)
[2017-02-19] MEDS: cefTRIAXone INJ 2,000 MG in SODIUM CHLORIDE 0.9% INJ 100 ML IV SCH (22:57)
[2017-02-20] VITALS (9 sets, daily range): BP systolic 102–115; BP diastolic 48–62; PULSE 104–113; RESP 18; TEMP 98.1–99.4
[2017-02-20] MEDS: oxyCODONE/ACETAMINOPHEN 5 MG/325 MG TAB PO PRN (02:57)
--- NOTE | 2017-02-20 08:11 | PD.OB.ANTE ---
Subjective Diagnosis: (1) 30 weeks gestation of Diagnosis: Principal (2) Pyelonephritis Diagnosis: Principal Antepartum ROS: Reports: Other (doing well) Objective Vital Signs Vital Signs Date Time Temp Pulse Resp B/P (MAP) Pulse Ox O2 Delivery O2 Flow Rate FiO2 02/20/17 07:41 104 102/48 (66) 02/20/17 07:40 106 02/20/17 07:39 98.1 18 02/20/17 03:51 98.5 02/20/17 03:26 98.9 02/20/17 02:43 110 102/55 (71) 02/20/17 02:42 18 02/20/17 02:37 99.4 02/19/17 22:59 98.6 02/19/17 22:45 102 87/44 (58) 02/19/17 22:44 18 02/19/17 19:28 98.3 02/19/17 19:23 18 02/19/17 17:17 118 112/59 (76) 02/19/17 17:04 124 100/47 (64) 02/19/17 17:02 149 02/19/17 11:48 108 108/65 (79) 02/19/17 11:48 98.9 18 02/19/17 08:52 112 92/52 (65) 02/19/17 08:50 97.8 18 Lab & Micro Results Date/Time Source Procedure Growth Status 02/18/17 20:11 Urine Clean Catch Urine Culture - Preliminary Gram Negative Lux Resulted Physical Exam GENERAL: Well-nourished, well-developed patient. CARDIOVASCULAR: Regular rate and rhythm without murmurs, gallops, or rubs. RESPIRATORY: Breath sounds equal bilaterally. No accessory muscle use. ABDOMEN/GI: Abdomen soft, non-tender. Fundus: [-] GENITOURINARY: External Genitalia: intact and normal in appearance, cva improved Cervix: [-] Dilatation: Effacement: [-] Station: [-] Presentation: [-] Membranes: [-] Uterine Contractions: [-] FHT's: Category: [-] Baseline: [-] Reactive: [-] Variability: [-] Decels: [-] EXTREMITIES: No cyanosis or edema, non-tender, without signs of DVT. Assessment and Plan Problem List: (1) 30 weeks gestation of ICD Codes: Z3A.30 - 30 weeks gestation of (2) Pyelonephritis ICD Codes: N12 - Tubulo-interstitial nephritis, not specified as acute or chronic Status: Acute Assessment and Plan continue pain but improved dc home and follow up 2 weeks, needs Patrick Wong MD Feb 20, 2017 08:11
[2017-02-20] MEDS ORDERED: CEPH-460 PO (08:13)
--- NOTE | 2017-02-20 08:14 | HHI.DCPOC ---
Discharge Care Plan Diagnosis: (1) Pyelonephritis Report Symptoms to Your Doctor -Temperature above 100.5 degrees -Redness, of incision or excessive or foul smelling drainage -Unusual pain or calf pain -Increased vaginal bleeding -Painful or difficulty urinating -Feelings of extreme sadness or anxiety after 2 weeks Goals to Promote Your Health * To prevent worsening of your condition and complications * To maintain your health at the optimal level Directions to Meet Your Goals Take your medications as prescribed Follow your dietary instruction Follow activity as directed Ensure plenty of rest for recovery Drink fluids for hydration Keep your appointments as scheduled Take your immunizations and boosters as scheduled If your symptoms worsen call your PCP, if no PCP go to Urgent Care Center or Emergency Room Smoking is Dangerous to Your Health. Avoid second hand smoke Call the 24-hour crisis hotline for domestic abuse at Patrick Crowley MD Feb 20, 2017 08:14
--- NOTE | 2017-02-20 08:16 | HHI.DS ---
Admission Date Feb 18, 2017 at 22:05 Discharge Date: Feb 20, 2017 Admitting Diagnosis Diagnosis: (1) Pyelonephritis ICD Codes: N12 - Tubulo-interstitial nephritis, not specified as acute or chronic Status: Acute (2) 30 weeks gestation of ICD Codes: Z3A.30 - 30 weeks gestation of Brief History right flank for 2 days Hospital Course pyelo with Gram neg rods dc home with keflex Pt Condition on Discharge: Good Discharge Disposition: Discharge Home Discharge Instructions Diet Instructions: As Tolerated, No Restrictions Activities You Can Perform: Regular-No Restrictions Follow up Referrals: CRISIS MANAGER - 2 Weeks @ [facility] with Patrick Crowley MD New Medications: Cephalexin (Keflex) 500 Mg Cap 500 MG PO Q8H for Infection, #30 CAP 0 Refills Continued Medications: Promethazine (Phenergan) 25 Mg Tablet 25 MG PO Q6H PRN for NAUSEA OR VOMITING, #12 TAB 0 Refills Patrick Crowley MD Feb 20, 2017 08:16
[2017-02-20] MEDS: ZANTAC 150MG PO SCH (08:18)
[2017-02-20] MEDS: DOCUSATE SODIUM 100 MG CAP PO SCH (09:00)
[2017-02-20] MEDS: ONDANSETRON ODT 4 MG TAB PO PRN (12:55)
[2017-02-20] MEDS: cefTRIAXone INJ 2,000 MG in SODIUM CHLORIDE 0.9% INJ 100 ML IV SCH (13:28)
[2017-02-23 08:48] LABS: BATH SALTS (MDPV) UR NEG (NEG); ECSTASY (MDMA) UR NEG (NEG); GABAPENTIN UR NEG (NEG); HEROIN (6-ACETYLMORPHINE) UR NEG (NEG); HYDROMORPHONE U NEG (NEG); K2 SPICE UR NEG (NEG); OBMETHADONE UR NEG (NEG); PHENCYCLIDINE URINE NEG (NEG)
== END 2017-02-20 14:44 | disposition home or self-care (01) ==
LOC: HOBED 19:44 → H2EA 22:05
PROVIDERS: ADMIT Obstetrics & Gynecology; ATTEND Obstetrics & Gynecology
DX: O23.03 Infections of kidney in pregnancy, third trimester (principal); Z3A.29 29 weeks gestation of pregnancy; B96.89 Other specified bacterial agents as the cause of diseases classified elsewhere
CPT/HCPCS: 76775; 80053; 80307; 81001; 85027; 87077; 87086; 87186; 96361; 96365; 96372; 96375; 96376; 99285; G0378; G0481; J0696; J2270; J2550; J7120

== ENCOUNTER 2017-03-06 22:12 | Emergency (ER) | payer MEDICAID ==
[~2017-03-06 22:12] MED LIST changes: +CEPH-460 PO; -ZOFR4TAB3 SL
[2017-03-06] MEDS ORDERED: LACTATED RINGER'S 1000 ML INJ 1,000 ML IV SCH ×2 (23:09)
[2017-03-06] MEDS ORDERED: METOCLOPRAMIDE HCL 10 MG/2 ML VIAL IV PUSH ONE ×2 (23:15)
[2017-03-06] MEDS ORDERED: ONDANSETRON HCL 4 MG/2 ML VIAL IV PUSH ONE ×2 (23:15)
[2017-03-06] MEDS ORDERED: VIST50CA PO ×2 (23:23)
[2017-03-06] MEDS ORDERED: REGL10TA5 PO ×2 (23:24)
--- NOTE | 2017-03-06 23:24 | PD ---
HPI Chief Complaint Nausea and vomiting all day numbness and tingling in her hands and feet Date Seen: Mar 06, 2017 Time Seen: 23:10 Travel History International Travel<30 Days: No Contact w/Intl Traveler<30Days: No Known Affected Area: No History of Present Illness HPI Patient is 26-year-old white female at [address] Gueirn for care presents for recurrent nausea vomiting she's had this problem for at least a month I saw her a month ago and treated her. She complains of numbness and tingling in her hands and feet today along with nausea and vomiting , complains of low back pain as well. Denies pain or leakage of fluid or bleeding. heart rate is reactive and no contractions seen Weeks Gestation: 32 Para: 0 : 1 History Obstetric History Obstetric History Hyperemesis with this Social History Alcohol Use: No Tobacco Use: No Substance Abuse: No Allergies-Medications (Allergen,Severity, Reaction): Coded Allergies: No Known Allergies (Verified , 01/20/17) Home Meds Active Scripts Cephalexin (Keflex) 500 Mg Cap, 500 MG PO Q8H for Infection, #30 CAP 0 Refills Prov:Patrick Crowley MD 02/20/17 Promethazine (Phenergan) 25 Mg Tablet, 25 MG PO Q6H Y for NAUSEA OR VOMITING, # 12 TAB 0 Refills Prov:Rayray Mercado MD 01/20/17 Review of Systems General / Constitutional: No: Fever, Weight Gain, Chills, Other Eyes: No: Diploplia, Blurred Vision, Visual changes, Pain, Photophobia HENT: No: Headaches, Vertigo, Lightheadedness Cardiovascular: No: Irregular Rhythm, Chest Pain or Discomfort, Palpitations, Tachycardia, Syncope, Varicosities, Edema, Cyanosis Respiratory: No: Cough, Short of Breath, Other Gastrointestinal: Nausea, Vomiting, No: Diarrhea Genitourinary: No: Decreased Urinary Output, Oliguria Musculoskeletal: No: Limited ROM, Weakness, Cramping, Edema, Pain Skin: No Rash, No Itching, No Dryness, No Lumps, No Change in Pigmentation, No Change in Nails, No Alopecia, No Lesions Neurologic: No: Weakness, Dizziness, Syncope, Focal Abnormalities, Coordination Problem, Headache, Slurred Speech, Seizures Psychiatric: No: Depression, Suicidal Ideations, Homicidal Ideation Endocrine: No: Heat Intolerance, Cold Intolerance, Polydipsia, Polyuria, Other Physical Exam Narrative GENERAL: Well-nourished, well-developed patient. SKIN: Warm and dry. HEAD: Normocephalic and atraumatic. EYES: No scleral icterus. No injection or drainage. ENT: No nasal drainage noted. Mucous membranes pink. Airway patent. NECK: Supple, trachea midline. No JVD. CARDIOVASCULAR: Regular rate and rhythm without murmurs, gallops, or rubs. RESPIRATORY: Breath sounds equal bilaterally. No accessory muscle use. BREASTS: Bilateral exam showed no masses , no retractions, no nipple discharge. ABDOMEN/GI: Abdomen soft, non-tender, bowel sounds present, no rebound, no guarding Gravid to [-32] weeks size Fundal Height: [32-] GENITOURINARY: External Genitalia: intact and normal in appearance BUS glands: [-] Cervix: [-post] Dilatation: [0-] Effacement: [0-] Station: [-3] Membranes: [intact ] Uterine Contractions: [none-] FHT's: Category: [1-] Baseline: [122-] Reactive: [-yes] Variability: [-mod] Decels: [0-] EXTREMITIES: No cyanosis or edema. BACK: Nontender without obvious deformity. No CVA tenderness. NEUROLOGICAL: Awake and alert. Motor and sensory grossly within normal limits. Five out of 5 muscle strength in all muscle groups. Normal speech. Data Data Orders Orders Vital Signs (Adult) .ON ADMISSION (03/06/17 23:09) ^ Labor Status (03/06/17 23:09) Urinalysis - C+S If Indicated (03/06/17 23:09) Basic Metabolic Panel (Bmp) (03/06/17 23:09) Lactated Ringer's 1000 Ml Inj (Lr 1000 M (03/06/17 23:09) Ondansetron Inj (Zofran Inj) (03/06/17 23:15) Ob/Psych Drug Screen, Urine (03/06/17 23:09) Metoclopramide Inj (Reglan Inj) (03/06/17 23:15) Labs Urine dip on the floor positive for ketones consistent with dehydration MDM Interpretation(s) Postoperative 26-year-old white female at [address] Guerin for care who presents with nausea and vomiting long-term is persistently resistant home medicines so far with numbness and tingling in her hands and feet , low back pain. She denies bleeding or leakage of fluid. heart rate tracing is reactive, she's not tobin, cervix is closed long and high Plan to IV hydrate the patient IV antiemetic with Zofran and Reglan, check BMP, as mentioned urine dip showed positive ketones otherwise negative Plan Plan to do the above measures of IV hydration and treatments here on OB ED, will send home with prescription for Vistaril and Reglan to take with meals and bedtime snack on a daily basis Diagnosis Diagnosis: Primary Impression: Hyperemesis complicating , antepartum Additional Impressions: Hand paresthesia Low back pain during in third trimester Disposition: 01 DISCHARGE HOME Condition: Stable Scripts Metoclopramide (Reglan) 10 Mg Tab 10 MG PO QID for Nausea, #90 TAB 0 Refills Prov: Ross Cochran II, MD 03/06/17 Hydroxyzine Pamoate (Vistaril) 50 Mg Cap 50 MG PO QID Y for NAUSEA for 30 Days, #90 CAP 0 Refills Prov: Ross Cochran II, MD 03/06/17 Ross Cochran II, MD Mar 06, 2017 23:24
[2017-03-06 23:30] LABS: BACTERIA, URINE FEW /hpf; BILIRUBIN, URINE NEG (NEG); BLOOD, URINE NEG (NEG); GLUCOSE,URINE NEG (NEG); KETONE, URINE 10 mg/dL (NEG); MUCUS URINE FEW /lpf (OCC); NITRITE,URINE NEG (NEG); SQUAMOUS EPITHELIAL CELL URINE 108 /hpf (0-5); URINE COLOR YELLOW (YELLW/STRAW); URINE LEUKOCYTE ESTERASE LARGE (NEG)
[2017-03-06 23:46] LABS: BICARBONATE 22.9 MEQ/L (21.0-32.0); CALCIUM 8.6 MG/DL (8.5-10.1); CREATININE 0.6 MG/DL (0.50-1.00)
== END 2017-03-07 00:03 | disposition home or self-care (01) ==
LOC: HOBED 22:12
DX: O21.0 Mild hyperemesis gravidarum (principal); R20.2 Paresthesia of skin; M54.5 Low back pain; B96.89 Other specified bacterial agents as the cause of diseases classified elsewhere; Z3A.32 32 weeks gestation of pregnancy
CPT/HCPCS: 59025; 80048; 80307; 81001; 87086; 96374; 96375; 99284; G0481; J2405; J2765; J7120

== ENCOUNTER 2017-04-22 11:29 | Emergency (ER) | payer MEDICAID ==
[~2017-04-22 11:29] MED LIST changes: +REGL10TA5 PO; +VIST50CA PO
--- NOTE | 2017-04-22 12:26 | PD ---
HPI Chief Complaint Contractions Travel History International Travel<30 Days: No Contact w/Intl Traveler<30Days: No History of Present Illness HPI 27-year-old , IUP at 39.0 care uncomplicated per patient report. The patient presents complaining of the onset of painful contractions since 9 AM. She reports that these are every 7-10 minutes. There are no aggravating or alleviating factors and there had been no attempted treatments. She reports good movement. She denies any leaking of fluid or vaginal bleeding. She reports that Dr. Crowley told her he would induce her at 39 weeks and she would like to be induced if she is not in labor. Weeks Gestation: 39 Para: 0 : 1 History Past Medical History Medical History: Denies Significant Hx Obstetric History Obstetric History Past Surgical History Narrative Surgical Tonsillectomy Family History Narrative Family History Diabetes, hypertension, cancer, coronary artery disease, [place] Social History Alcohol Use: No Tobacco Use: No Substance Abuse: Yes (marijuana per previous records) Allergies-Medications (Allergen,Severity, Reaction): Coded Allergies: No Known Allergies (Verified , 01/20/17) Home Meds Active Scripts Metoclopramide (Reglan) 10 Mg Tab, 10 MG PO QID for Nausea, #90 TAB 0 Refills Prov:Ross Cochran II, MD 03/06/17 Hydroxyzine Pamoate (Vistaril) 50 Mg Cap, 50 MG PO QID Y for NAUSEA for 30 Days , #90 CAP 0 Refills Prov:Ross Cochran II, MD 03/06/17 Cephalexin (Keflex) 500 Mg Cap, 500 MG PO Q8H for Infection, #30 CAP 0 Refills Prov:Patrick Crowley MD 02/20/17 Promethazine (Phenergan) 25 Mg Tablet, 25 MG PO Q6H Y for NAUSEA OR VOMITING, # 12 TAB 0 Refills Prov:Rayray Mercado MD 01/20/17 Review of Systems Except as stated in HPI: all other systems reviewed are Neg Physical Exam Narrative GENERAL: Well-nourished, well-developed patient. SKIN: Warm and dry. HEAD: Normocephalic and atraumatic. EYES: No scleral icterus. No injection or drainage. ENT: No nasal drainage noted. Mucous membranes pink. Airway patent. NECK: Supple, trachea midline. No JVD. CARDIOVASCULAR: Regular rate and rhythm without murmurs, gallops, or rubs. RESPIRATORY: Breath sounds equal bilaterally. No accessory muscle use. BREASTS: Deferred ABDOMEN/GI: Abdomen soft, non-tender, bowel sounds present, no rebound, no guarding Gravid GENITOURINARY: External Genitalia: intact and normal in appearance. Grossly normal vaginal exam per nurse report with SVE 1-2/thick/high. Unchanged over observation period. FHT's: 140s with moderate long-term variability, good accelerations, no decelerations noted. The patient is a reactive NST and category 1 heart rate tracing EXTREMITIES: No cyanosis or edema. BACK: Nontender without obvious deformity. NEUROLOGICAL: Awake and alert. Motor and sensory grossly within normal limits. Five out of 5 muscle strength in all muscle groups. Normal speech. Psychiatric: Grossly normal memory and affect Musculoskeletal: Grossly normal range of motion, gait, muscle strength MDM Plan Assessment/plan: 1. IUP at 39.0 2. Contractions at term: No evidence of active labor with an unchanged cervical exam. The patient was disappointed she was not in labor as she is experiencing contractions every 7-10 minutes and lives alone. She is also states that she wants to have a baby by [place]. 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 We discussed that she does not meet criteria of active labor. We discussed that typically contractions will become more frequent and a increased intensity. The patient states she would like to be induced. She has of doctor's appointment this afternoon at 3 PM so we have recommended she discuss this with her physician at that time. Strict labor precautions were given 3. well-being: Reassuring testing with reactive NST and category 1 heart rate tracing 4. Follow up with primary OB this afternoon as scheduled or sooner if needed Diagnosis Diagnosis: Primary Impression: 39 weeks gestation of Additional Impression: False labor Disposition: 01 DISCHARGE HOME Condition: Chey Simmons MD Apr 22, 2017 12:26
== END 2017-04-22 16:31 | disposition home or self-care (01) ==
LOC: HOBED 11:29
DX: O47.9 False labor, unspecified (principal); Z3A.39 39 weeks gestation of pregnancy
CPT/HCPCS: 59025

== ENCOUNTER 2017-04-22 18:38 | Inpatient (IN) | payer MEDICAID ==
[2017-04-21] MEDS: LACTATED RINGER'S 1000 ML INJ 1,000 ML IV SCH (21:00)
[2017-04-22] VITALS (41 sets, daily range): BP systolic 79–139; BP diastolic 36–104; PULSE 80–119; RESP 18–20; O2SAT 100
[~2017-04-22] VITALS: Ht 157.5 cm; Wt 80.3 kg
[2017-04-22] MEDS: LACTATED RINGER'S 1000 ML INJ 1,000 ML IV SCH (21:00)
[2017-04-22] MEDS ORDERED: fentaNYL 2MCG-BUPIV 0.125% INJ 100 ML ONE (21:17)
[2017-04-22] MEDS ORDERED: LACTATED RINGER'S 1000 ML INJ 1,000 ML IV PRN (21:27)
--- NOTE | 2017-04-22 21:27 | PD ---
History of Present Illness History of Present Illness Patient Name: Lexie Dee Date of : 1990 Attending Doctor: Chey Erickson MD HPI HPI Chief Complaint Contractions Travel History International Travel<30 Days: No Contact w/Intl Traveler<30Days: No History of Present Illness HPI 27-year-old , IUP at 39.0 care uncomplicated per patient report. The patient was previously seen this morning complaining of the onset of painful contractions since 9 AM. She reports that these are every 7-10 minutes. She denied any leaking of fluid or vaginal bleeding at that time. She was found to not be in labor with a cervical or exam of 1-2/thick/high. She was discharged home and followed up with Dr. Crowley this afternoon at her office visit where she reports her membranes were stripped. She reports that she continued to have contractions but they remained spaced out even though they have increased somewhat in intensity after her office visit. She reports at 5:45 PM she started having leaking of fluid and subsequently had a large gush of clear fluid after presenting to registration. She reports that her contractions increased in intensity and frequency after the gush of fluid and are now every 5 minutes. She reports good movement. She denies any vaginal bleeding. Weeks Gestation: 39 Para: 0 : 1 History (Limited) History Past Medical History Medical History: Denies Significant Hx Obstetric History Obstetric History Past Surgical History Narrative Surgical Tonsillectomy Family History Narrative Family History Diabetes, hypertension, cancer, coronary artery disease, [place] Social History Alcohol Use: No Tobacco Use: No Substance Abuse: Yes (marijuana per previous records) Allergies-Medications Allergies-Medications (Allergen,Severity, Reaction): Coded Allergies: No Known Allergies (Verified , 01/20/17) Home Meds Active Scripts Metoclopramide (Reglan) 10 Mg Tab, 10 MG PO QID for Nausea, #90 TAB 0 Refills Prov:Ross Cochran II, MD 03/06/17 Hydroxyzine Pamoate (Vistaril) 50 Mg Cap, 50 MG PO QID Y for NAUSEA for 30 Days , #90 CAP 0 Refills Prov:Ross Cochran II, MD 03/06/17 Cephalexin (Keflex) 500 Mg Cap, 500 MG PO Q8H for Infection, #30 CAP 0 Refills Prov:Patrick Crowley MD 02/20/17 Promethazine (Phenergan) 25 Mg Tablet, 25 MG PO Q6H Y for NAUSEA OR VOMITING, # 12 TAB 0 Refills Prov:Rayray Mercado MD 01/20/17 ROS Review of Systems Except as stated in HPI: all other systems reviewed are Neg Physical Exam Physical Exam Narrative GENERAL: Well-nourished, well-developed patient. SKIN: Warm and dry. HEAD: Normocephalic and atraumatic. EYES: No scleral icterus. No injection or drainage. ENT: No nasal drainage noted. Mucous membranes pink. Airway patent. NECK: Supple, trachea midline. No JVD. CARDIOVASCULAR: Regular rate and rhythm without murmurs, gallops, or rubs. RESPIRATORY: Breath sounds equal bilaterally. No accessory muscle use. BREASTS: Deferred ABDOMEN/GI: Abdomen soft, non-tender, bowel sounds present, no rebound, no guarding Gravid GENITOURINARY: External Genitalia: intact and normal in appearance. Vaginal exam with SVE 3 /80/-2 with cervix still posterior. Patient is grossly ruptured. FHT's: 140s with moderate long-term variability, good accelerations, no decelerations noted. The patient is a reactive NST and category 1 heart rate tracing EXTREMITIES: No cyanosis or edema. BACK: Nontender without obvious deformity. NEUROLOGICAL: Awake and alert. Motor and sensory grossly within normal limits. Five out of 5 muscle strength in all muscle groups. Normal speech. Psychiatric: Grossly normal memory and affect Musculoskeletal: Grossly normal range of motion, gait, muscle strength Data Data [facility] Plan Assessment/plan: 1. IUP at 39.0 2. SROM: The patient presents with painful contractions and spontaneously ruptured membranes. She is noted to be grossly ruptured on examination and is made cervical change to 3/80/-2. I spoke with Dr. Crowley and we'll admit her to his service for expectant management at this time. The risks of vaginal delivery as well as risks and indications of delivery were discussed with the patient. We also discussed possible augmentation if that decision is made by Dr. Crowley. 3. well-being: Reassuring testing with reactive NST and category 1 heart rate tracing 4. GBS negative 5. History of marijuana use Diagnosis Diagnosis: Primary Impression: 39 weeks gestation of Additional Impression: SROM Disposition: Admit Condition: Good Chey Erickson MD Apr 22, 2017 12:26 Chey Erickson MD Apr 22, 2017 21:27
[2017-04-22] MEDS ORDERED: MINERAL OIL 10 ML VIAL TOPICAL PRN (21:30)
[2017-04-22] MEDS ORDERED: ONDANSETRON HCL 4 MG/2 ML VIAL IV PUSH PRN (21:30)
[2017-04-22] MEDS ORDERED: LIDOCAINE HCL 1% 50 ML VIAL I-DERMAL PRN (21:30)
[2017-04-22] MEDS ORDERED: SODIUM CHLORID 0.9% 500 ML INJ 500 ML IV PRN (21:30)
[2017-04-22] MEDS ORDERED: OXYTOCIN 30 UNITS-500ML PREMIX 500 ML IV ONE (21:30)
[2017-04-22] MEDS ORDERED: LIDOCAINE HCL 1% 50 ML VIAL INFIL PRN (21:30)
[2017-04-22] MEDS ORDERED: CITRIC ACID-SODIUM CITRATE LIQ 30 ML UDC PO SCH (21:30)
[2017-04-22 21:32] LABS: AUTOMATED NEUTROPHIL # 6.8 TH/MM3 (1.8-7.7); BASOPHIL # 0.1 TH/MM3 (0-0.2); BASOPHIL % 1.1 % (0.0-2.0); EOSINOPHIL # 0.1 TH/MM3 (0-0.4); EOSINOPHIL % 0.5 % (0.0-4.0); HEMATOCRIT 35.1 % (35.0-46.0); HEMO FLAGS DIFF FINAL; LYMPH % 25.5 % (9.0-44.0); LYMPHOCYTE # 2.8 TH/MM3 (1.0-4.8); MEAN CELL VOLUME 86.8 FL (80.0-100.0); MEAN CORPUSCULAR HEMOGLOBIN 29.5 PG (27.0-34.0); MONO % 10.6 % (0.0-8.0); NEUT % 62.3 % (16.0-70.0); PLATELET COUNT 250 TH/MM3 (150-450); RED BLOOD COUNT 4.05 MIL/MM3 (4.00-5.30); RED CELL DISTRIBUTION WIDTH 13.7 % (11.6-17.2)
[2017-04-22 21:37] LABS: BLOOD, URINE MOD (NEG); COMMENT (UR) CULT NOT INDICATED; CULTURE IF INDICATED CULT NOT INDICATED; GLUCOSE,URINE NEG (NEG); KETONE, URINE NEG (NEG); MUCUS URINE FEW /lpf (OCC); NITRITE,URINE NEG (NEG); PH, URINE 6.5 (5.0-8.5); SQUAMOUS EPITHELIAL CELL URINE 6 /hpf (0-5); URINE COLOR YELLOW (YELLW/STRAW)
[2017-04-22] MEDS ORDERED: SODIUM CHLOR 0.9% 1000 ML INJ 1,000 ML IV PRN (21:47)
[2017-04-23] VITALS (131 sets, daily range): BP systolic 85–135; BP diastolic 53–81; PULSE 88–158; RESP 16–20; TEMP 98.1–99.3; O2SAT 98–100
--- NOTE | 2017-04-23 01:22 | PD.LABORPN ---
Subjective Subjective doing well Objective Vital Signs Vital Signs Date Time Temp Pulse Resp B/P (MAP) Pulse Ox O2 Delivery O2 Flow Rate FiO2 04/23/17 00:30 18 04/23/17 00:30 102 117/63 (81) 04/23/17 00:15 104/72 (83) 04/23/17 00:15 110 04/23/17 00:02 94 117/78 (91) 04/23/17 00:00 18 04/22/17 23:45 119 105/65 (78) 04/22/17 23:30 99 112/71 (85) 04/22/17 23:30 18 04/22/17 23:20 105 100 04/22/17 23:15 115/68 (84) 04/22/17 23:10 98 100 04/22/17 23:05 106 100 04/22/17 23:00 102 04/22/17 23:00 117/68 (84) 04/22/17 23:00 18 04/22/17 23:00 111 100 04/22/17 22:55 110 100 04/22/17 22:51 98 115/73 (87) 04/22/17 22:50 99 100 04/22/17 22:48 94 120/87 (98) 04/22/17 22:46 96 136/85 (102) 04/22/17 22:45 98 100 04/22/17 22:45 135/86 (102) 04/22/17 22:45 92 04/22/17 22:40 100 100 04/22/17 22:35 123/82 (96) 04/22/17 22:35 96 100 04/22/17 22:35 101 04/22/17 22:31 91 135/78 (97) 04/22/17 22:30 18 04/22/17 22:30 88 04/22/17 22:30 100 04/22/17 22:29 90 116/80 (92) 04/22/17 22:25 103 100 04/22/17 22:24 102 118/69 (85) 04/22/17 22:22 114/72 (86) 04/22/17 22:20 100 04/22/17 22:18 117/80 (92) 04/22/17 22:15 130/82 (98) 04/22/17 22:15 100 04/22/17 22:12 126/87 (100) 04/22/17 22:12 103 04/22/17 22:10 93 100 04/22/17 22:09 97 04/22/17 22:09 125/82 (96) 04/22/17 22:06 130/93 (105) 04/22/17 22:05 91 04/22/17 22:05 100 04/22/17 22:03 111/75 (87) 04/22/17 22:00 91 113/82 (92) 100 04/22/17 21:57 139/104 (116) 04/22/17 21:57 139/104 (116) 04/22/17 21:57 97 04/22/17 21:55 80 116/76 (89) 04/22/17 21:55 89 04/22/17 21:55 100 04/22/17 21:53 112 93/47 (62) 04/22/17 21:52 79/36 (50) 04/22/17 21:50 100 04/22/17 21:49 111/66 (81) 04/22/17 21:45 99 93/76 (82) 100 04/22/17 21:42 20 04/22/17 21:40 97 100 04/22/17 21:36 109/82 (91) Objective Pelvic Exam: Cervix: [-] Dilatation: 3 Effacement: 70 Station: [-] Presentation: vtx Membranes: SROM Uterine Contractions: irregular FHT's: Category: 1 Baseline: [-] Reactive: [-] Variability: [-] Decels: [-] Weeks Gestation: 39 Gest Age Assessed Date: Apr 23, 2017 Gest Age Assessed Time: 01:20 Pt started active labor?: Yes Active labor start date: Apr 23, 2017 Active labor start time: 01:20 Medical induction of labor?: No Artificial rupture of membrane: No Assessment/Plan Problem List: (1) 39 weeks gestation of ICD Codes: Z3A.39 - 39 weeks gestation of Patrick Crowley MD Apr 23, 2017 01:22
[2017-04-23] MEDS ORDERED: OXYTOCIN 30 UNITS-500ML PREMIX 500 ML IV SCH ×2 (01:30→16:00)
[2017-04-23] MEDS ORDERED: ePHEDrine/NS 25 MG/5 ML SYR ONE (01:49)
[2017-04-23] MEDS ORDERED: TERBUTALINE INJ 1 MG/ML AMP ONE (02:41)
--- NOTE | 2017-04-23 03:38 | HHI.PR ---
Subjective Remarks OB Hg The patient is a 27-year-old who was admitted for SROM at term. Presented to the bedside to assist for approximately 5 minute deceleration to ranged from the 60s to 100s just before 1:45 AM. She was examined and noted to be 5 cm dilated and the heart tones initially resolved to baseline of 120s with good accelerations and moderate long-term variability. Of note she was given IV fluids and oxygen. At 2:00 AM, the patient was noted to have some intermittent variable appearing decelerations. The patient was repositioned without resolution. 300 cc amnioinfusion bolus was given and 0.25 mg terbutaline administered subcutaneously. In addition the patient was consented for placement of a scalp electrode with risks, benefits, and alternatives discussed with the patient, including the risk of infection or injury to the fetus. The scalp electrode was placed without incident. SVE was noted to be 6 cm dilated, completely effaced, +1 station. The fetus responded well to these resuscitative measures with a baseline in the 130s, moderate long-term variability, and good accelerations. There've been no further significant decelerations and the heart rate tracing is reassuring at this time. Dr. Crowley was notified about resuscitative measures and heart rate tracing pattern. Objective Vital Signs Date Time Temp Pulse Resp B/P (MAP) Pulse Ox O2 Delivery O2 Flow Rate FiO2 04/23/17 03:25 129 100 04/23/17 03:20 125 100 04/23/17 03:15 133 112/62 (79) 100 04/23/17 03:11 18 04/23/17 03:10 121 100 04/23/17 03:05 127 100 04/23/17 03:01 107/55 (72) 04/23/17 03:00 18 04/23/17 02:55 150 04/23/17 02:55 100 04/23/17 02:45 128/77 (94) 04/23/17 02:40 100 04/23/17 02:40 104 04/23/17 02:30 106 120/77 (91) 04/23/17 02:30 100 04/23/17 02:25 108 100 04/23/17 02:20 105 100 04/23/17 02:15 94 118/73 (88) 99 04/23/17 02:10 100 04/23/17 02:10 90 04/23/17 02:09 101/60 (74) 04/23/17 02:05 94 100 04/23/17 02:02 20 04/23/17 02:00 88 115/65 (82) 04/23/17 01:47 98 124/69 (87) 04/23/17 01:30 18 04/23/17 01:30 120 85/57 (66) 04/23/17 01:15 106 85/70 (75) 04/23/17 01:00 99/53 (68) 04/23/17 01:00 99 04/23/17 01:00 18 04/23/17 00:45 106 04/23/17 00:45 88/60 (69) 04/23/17 00:30 18 04/23/17 00:30 102 117/63 (81) 04/23/17 00:15 104/72 (83) 04/23/17 00:15 110 04/23/17 00:02 94 117/78 (91) 04/23/17 00:00 18 04/22/17 23:45 119 105/65 (78) 04/22/17 23:30 99 112/71 (85) 04/22/17 23:30 18 04/22/17 23:20 105 100 04/22/17 23:15 115/68 (84) 04/22/17 23:10 98 100 04/22/17 23:05 106 100 04/22/17 23:00 102 04/22/17 23:00 117/68 (84) 04/22/17 23:00 18 04/22/17 23:00 111 100 04/22/17 22:55 110 100 04/22/17 22:51 98 115/73 (87) 04/22/17 22:50 99 100 04/22/17 22:48 94 120/87 (98) 04/22/17 22:46 96 136/85 (102) 04/22/17 22:45 98 100 04/22/17 22:45 135/86 (102) 04/22/17 22:45 92 04/22/17 22:40 100 100 04/22/17 22:35 123/82 (96) 04/22/17 22:35 96 100 04/22/17 22:35 101 12/13/17 22:31 91 135/78 (97) 04/22/17 22:30 18 04/22/17 22:30 88 04/22/17 22:30 100 04/22/17 22:29 90 116/80 (92) 04/22/17 22:25 103 100 04/22/17 22:24 102 118/69 (85) 04/22/17 22:22 114/72 (86) 04/22/17 22:20 100 04/22/17 22:18 117/80 (92) 04/22/17 22:15 130/82 (98) 04/22/17 22:15 100 04/22/17 22:12 126/87 (100) 04/22/17 22:12 103 04/22/17 22:10 93 100 04/22/17 22:09 97 04/22/17 22:09 125/82 (96) 04/22/17 22:06 130/93 (105) 04/22/17 22:05 91 04/22/17 22:05 100 04/22/17 22:03 111/75 (87) 04/22/17 22:00 91 113/82 (92) 100 04/22/17 21:57 139/104 (116) 04/22/17 21:57 139/104 (116) 04/22/17 21:57 97 04/22/17 21:55 80 116/76 (89) 04/22/17 21:55 89 04/22/17 21:55 100 04/22/17 21:53 112 93/47 (62) 04/22/17 21:52 79/36 (50) 04/22/17 21:50 100 04/22/17 21:49 111/66 (81) 04/22/17 21:45 99 93/76 (82) 100 04/22/17 21:42 20 04/22/17 21:40 97 100 04/22/17 21:36 109/82 (91) Result Diagram: 04/22/172056 Chey Erickson MD Apr 23, 2017 03:38
[2017-04-23] MEDS ORDERED: fentaNYL 2MCG-BUPIV 0.125% INJ 100 ML ONE ×2 (05:17→12:40)
--- NOTE | 2017-04-23 07:48 | PD.LABORPN ---
Subjective Subjective doing well. Patient understands arrest of dilatation Objective Vital Signs GENERAL: erally. No accessory muscle use. GASTROINTESTINAL: Abdomen soft, non-tender, nondistended. MUSCULOSKELETAL: No cyanosis, or edema. BACK: Nontender without obvious deformity. No CVA tenderness. Vital Signs Date Time Temp Pulse Resp B/P (MAP) Pulse Ox O2 Delivery O2 Flow Rate FiO2 04/23/17 07:10 110 100 04/23/17 07:00 103/68 (80) 04/23/17 06:55 112 04/23/17 06:50 109 100 04/23/17 06:45 18 100 04/23/17 06:45 107 113/67 (82) 04/23/17 06:40 106 100 04/23/17 06:30 109/65 (80) 04/23/17 06:25 104 100 04/23/17 06:15 100 04/23/17 06:15 108 114/70 (85) 04/23/17 06:10 106 100 04/23/17 06:00 123/77 (92) 04/23/17 05:55 100 04/23/17 05:55 111 04/23/17 05:46 18 04/23/17 05:45 115 117/65 (82) 100 04/23/17 05:45 98.5 18 04/23/17 05:40 113 100 04/23/17 05:30 119/75 (90) 04/23/17 05:25 120 100 04/23/17 05:17 18 04/23/17 05:15 120/72 (88) 04/23/17 05:10 100 04/23/17 05:10 115 04/23/17 05:00 115/69 (84) 04/23/17 04:55 120 100 04/23/17 04:50 121 100 04/23/17 04:46 118/60 (79) 04/23/17 04:45 18 04/23/17 04:40 122 100 04/23/17 04:35 123 100 04/23/17 04:30 126/74 (91) 04/23/17 04:25 127 100 04/23/17 04:20 158 100 04/23/17 04:15 112/55 (74) 04/23/17 04:10 122 98 04/23/17 04:00 108/60 (76) 04/23/17 03:55 121 100 04/23/17 03:45 118 108/54 (72) 100 04/23/17 03:40 100 04/23/17 03:40 125 04/23/17 03:35 126 100 04/23/17 03:30 110/54 (72) 04/23/17 03:30 18 04/23/17 03:25 129 100 04/23/17 03:20 125 100 04/23/17 03:15 133 112/62 (79) 100 04/23/17 03:11 18 04/23/17 03:10 121 100 04/23/17 03:05 127 100 04/23/17 03:01 107/55 (72) 04/23/17 03:00 18 04/23/17 02:55 150 04/23/17 02:55 100 04/23/17 02:45 128/77 (94) 04/23/17 02:40 100 04/23/17 02:40 104 04/23/17 02:30 106 120/77 (91) 04/23/17 02:30 100 04/23/17 02:25 108 100 04/23/17 02:20 105 100 04/23/17 02:15 94 118/73 (88) 99 04/23/17 02:10 100 04/23/17 02:10 90 04/23/17 02:09 101/60 (74) 04/23/17 02:05 94 100 04/23/17 02:02 20 04/23/17 02:00 88 115/65 (82) 04/23/17 01:47 98 124/69 (87) 04/23/17 01:30 18 04/23/17 01:30 120 85/57 (66) 04/23/17 01:15 106 85/70 (75) 04/23/17 01:00 99/53 (68) 04/23/17 01:00 99 04/23/17 01:00 18 04/23/17 00:45 106 04/23/17 00:45 88/60 (69) 04/23/17 00:30 18 04/23/17 00:30 102 117/63 (81) 04/23/17 00:15 104/72 (83) 04/23/17 00:15 110 04/23/17 00:02 94 117/78 (91) 04/23/17 00:00 18 04/22/17 23:45 119 105/65 (78) Objective Pelvic Exam: Cervix: [-] Dilatation: 8 Effacement: Station: -1 Presentation: [-] Membranes: [intact or ruptured] Uterine Contractions: [-] FHT's: Category: 2 on o2 changing position Baseline: [-] Reactive: [-] Variability: [-] Decels: few Weeks Gestation: 39 Gest Age Assessed Date: Apr 23, 2017 Gest Age Assessed Time: 01:20 Pt started active labor?: Yes Active labor start date: Apr 23, 2017 Active labor start time: 01:20 Medical induction of labor?: No Artificial rupture of membrane: No Assessment/Plan Problem List: (1) 39 weeks gestation of ICD Codes: Z3A.39 - 39 weeks gestation of Patrick Crowley MD Apr 23, 2017 07:48
--- NOTE | 2017-04-23 15:51 | PD.OB.DELI ---
Weeks gestation: 39 Gest age assessed date: Apr 23, 2017 Gest age assessed time: 01:20 Pt started active labor?: Yes Active labor start date: Apr 23, 2017 Active labor start time: 01:20 Medical induction of labor?: No Artificial rupture of membrane: No Anesthesia: Epidural Episiotomy: None Vaginal Delivery: Normal, Spontaneous Presentation: Occiput anterior Nuchal Cord: None Delayed cord clamping (45 sec): Yes (4 minutes) Infant: Male, Single Delivery date: Apr 23, 2017 Delivery time: 15:29 One Minute : 9 Five Minute : 9 Placenta: Spontaneous delivery, Intact Laceration: Perineal laceration, 2 deg Repair: Chromic interrupted Patrick Crowley MD Apr 23, 2017 15:51
[2017-04-23] MEDS ORDERED: SODIUM CHLORIDE 0.9% FLUSH 10 ML FLUSH IV FLUSH PRN (16:00)
[2017-04-23] MEDS ORDERED: MEASLES, MUMPS, RUBELLA VACCINE 0.5 ML VIAL SQ ONE (16:00)
[2017-04-23] MEDS ORDERED: DIPHTH/TETANUS/ACEL PERTUSSIS (BOOSTER) 0.5 ML VIAL/PFS IM ONE (16:00)
[2017-04-23] MEDS ORDERED: ACETAMINOPHEN 325 MG TAB PO PRN (16:00)
[2017-04-23] MEDS ORDERED: ZOLPIDEM TARTRATE 5 MG TAB PO PRN (16:00)
[2017-04-23] MEDS ORDERED: DOCUSATE SODIUM 50 MG/SENNA 8.6 MG TAB PO PRN (16:00)
[2017-04-23] MEDS ORDERED: ONDANSETRON ODT 4 MG TAB PO PRN (16:00)
[2017-04-23] MEDS ORDERED: WITCH HAZEL 50%/GLYCERIN 12.5% 40 PAD JAR TOPICAL PRN (16:00)
[2017-04-23] MEDS ORDERED: BENZOCAINE 20% TOPICAL SPRAY 60 ML CAN TOPICAL PRN (16:00)
[2017-04-23] MEDS ORDERED: ALUMINUM/MAGNESIUM/SIMETH 30 ML CUP PO PRN (16:00)
[2017-04-23] MEDS: IBUPROFEN 800 MG TAB PO PRN (17:58)
[2017-04-23] MEDS ORDERED: SODIUM CHLORIDE 0.9% FLUSH 10 ML FLUSH IV FLUSH SCH (21:00)
[2017-04-23] MEDS: FAMOTIDINE 20 MG TAB PO PRN (22:40)
[2017-04-24] MEDS: IBUPROFEN 800 MG TAB PO PRN ×2 (01:49→10:57)
--- NOTE | 2017-04-24 07:52 | HHI.OB ---
Subjective Post Day: 1 Remarks doing well Objective Vitals/I&O Vital Signs Date Time Temp Pulse Resp B/P (MAP) Pulse Ox O2 Delivery O2 Flow Rate FiO2 04/23/17 21:00 98.6 16 04/23/17 21:00 106 101/58 (72) 04/23/17 18:17 98.7 101 18 124/80 (95) 04/23/17 17:10 18 04/23/17 17:00 115 120/66 (84) 04/23/17 16:45 116 118/70 (86) 04/23/17 16:30 114 106/63 (77) 04/23/17 16:15 126 122/79 (93) 04/23/17 16:10 98.8 18 04/23/17 16:01 128 135/70 (91) 04/23/17 15:50 18 04/23/17 15:49 122 133/78 (96) 04/23/17 14:36 98.4 04/23/17 14:31 117 121/62 (81) 04/23/17 14:30 114 100 04/23/17 14:25 140 100 04/23/17 14:20 106 100 04/23/17 14:15 112 109/81 (90) 100 04/23/17 14:15 102 04/23/17 13:40 107 99 04/23/17 13:35 103 98 04/23/17 13:30 105 112/66 (81) 98 04/23/17 13:30 104 04/23/17 13:10 110 100 04/23/17 13:05 104 99 04/23/17 13:00 94 04/23/17 13:00 97 18 110/65 (80) 99 04/23/17 12:55 100 99 04/23/17 12:50 100 100 04/23/17 12:45 100 100 04/23/17 12:45 99.3 17 04/23/17 12:40 100 100 04/23/17 12:35 104 100 1417 12:30 18 04/23/17 12:30 105 107/62 (77) 100 04/23/17 12:30 102 04/23/17 12:25 107 100 04/23/17 12:20 106 99 04/23/17 12:15 103 99 04/23/17 12:10 115 99 04/23/17 12:05 101 98 04/23/17 12:00 110 04/23/17 12:00 105 107/66 (80) 98 04/23/17 11:40 100 04/23/17 11:40 102 04/23/17 11:35 101 100 04/23/17 11:30 102 106/66 (79) 100 04/23/17 11:30 95 04/23/17 11:05 101 100 04/23/17 11:00 110 04/23/17 11:00 101 110/66 (81) 100 04/23/17 10:40 115 100 04/23/17 10:35 109 100 04/23/17 10:30 99 04/23/17 10:30 106 127/81 (96) 100 04/23/17 10:05 131 100 04/23/17 10:00 103 116/78 (91) 100 04/23/17 10:00 106 04/23/17 09:57 98.1 18 04/23/17 09:40 104 100 04/23/17 09:35 104 100 04/23/17 09:30 105 100 04/23/17 09:30 106 109/53 (71) 04/23/17 09:10 113 99 04/23/17 09:05 109 99 04/23/17 09:00 103 109/68 (82) 99 04/23/17 09:00 111 04/23/17 08:40 122 100 04/23/17 08:35 106 99 04/23/17 08:30 108 04/23/17 08:30 110 110/67 (81) 99 04/23/17 08:10 107 100 04/23/17 08:05 110 99 04/23/17 08:02 98.6 04/23/17 08:00 116 111/67 (82) 100 04/23/17 08:00 114 Objective Remarks GENERAL: Well-nourished, well-developed patient. ABDOMEN/GI: Abdomen soft, non-tender. Fundus: Firm, non-tender at umbilicus. GENITOURINARY: Light to moderate bleeding. EXTREMITIES: No cyanosis or edema, non-tender, without signs of DVT. Medications and IVs Current Medications Medications (Trade) Dose Ordered Sig/Dale Route Start Time Stop Time Status Last Admin (NS Flush) 2 ml BID IV FLUSH 04/23/17 21:00 (NS Flush) 2 ml UNSCH PRN IV FLUSH 04/23/17 16:00 (Tylenol) 650 mg Q4H PRN PO 04/23/17 16:00 (Motrin) 800 mg Q8H PRN PO 04/23/17 16:00 04/24/17 01:49 (Americaine 20% Top Spr) 1 spray Q4H PRN TOPICAL 04/23/17 16:00 04/23/17 17:58 (Tucks Pads) 1 applic QID PRN TOPICAL 04/23/17 16:00 04/23/17 17:58 (Mali-Colace) 2 tab Q12H PRN PO 04/23/17 16:00 (Ambien) 5 mg HS PRN PO 04/23/17 16:00 (Mag-Al Plus Susp Liq) 15 ml Q8H PRN PO 04/23/17 16:00 (Zofran Odt) 4 mg Q6H PRN PO 04/23/17 16:00 04/23/17 16:31 (Pepcid) 20 mg BID PRN PO 04/23/17 22:30 04/23/17 22:40 Assessment/Plan Problem List: (1) 39 weeks gestation of ICD Codes: Z3A.39 - 39 weeks gestation of (2) Spontaneous vaginal delivery ICD Codes: O80 - Encounter for full-term uncomplicated delivery Discharge Planning [facility] Patrick Crowley MD Apr 24, 2017 07:52
[2017-04-24] MEDS ORDERED: IBUP1TAB7 PO (07:54)
--- NOTE | 2017-04-24 07:56 | HHI.DS ---
Admission Date Apr 22, 2017 at 20:32 Discharge Date: Apr 24, 2017 Admitting Diagnosis Diagnosis: (1) Spontaneous vaginal delivery Diagnosis: Principal ICD Codes: O80 - Encounter for full-term uncomplicated delivery Delivery Date: Apr 23, 2017 Vaginal Delivery: Normal, Spontaneous : Male, Single Brief History patient here with ruptured membranes in labor at 39 weeks Hospital Course on 2nd day of admission Pt Condition on Discharge: Good Discharge Disposition: Discharge Home Discharge Instructions Diet Instructions: As Tolerated, No Restrictions Activities You Can Perform: Regular-No Restrictions, Pelvic Rest Activities to Avoid: Driving for 24 hrs Follow up Referrals: [facility] - 2 Weeks @ [facility] with Patrick Crowley MD New Medications: Ibuprofen (Ibuprofen) 800 Mg Tab 800 MG PO Q8H PRN for CRAMPING, #20 TAB 0 Refills Continued Medications: Promethazine (Phenergan) 25 Mg Tablet 25 MG PO Q6H PRN for NAUSEA OR VOMITING, #12 TAB 0 Refills Discontinued Medications: Cephalexin (Keflex) 500 Mg Cap 500 MG PO Q8H for Infection, #30 CAP 0 Refills Hydroxyzine Pamoate (Vistaril) 50 Mg Cap 50 MG PO QID PRN for NAUSEA for 30 Days, #90 CAP 0 Refills Metoclopramide (Reglan) 10 Mg Tab 10 MG PO QID for Nausea, #90 TAB 0 Refills Patrick Crowley MD Apr 24, 2017 07:56
[2017-04-24 08:00] VITALS: BP 97/66; PULSE 78; RESP 16; TEMP 97.7; O2SAT 99
[2017-04-24] MEDS: FAMOTIDINE 20 MG TAB PO PRN (10:52)
== END 2017-04-24 18:26 | disposition home or self-care (01) | DRG 775 ==
LOC: HOBED 18:38 → H2EA 20:32 → H1EA 04-23 17:51
PROVIDERS: ADMIT Obstetrics & Gynecology; ATTEND Obstetrics & Gynecology
PROC: 00HU33Z Insertion of Infusion Device into Spinal Canal, Percutaneous Approach (ICD-10-PCS; 2017-04-22)
PROC: 3E0R3BZ Introduction of Anesthetic Agent into Spinal Canal, Percutaneous Approach (ICD-10-PCS; 2017-04-22)
PROC: 10E0XZZ Delivery of Products of Conception, External Approach (ICD-10-PCS; principal; 2017-04-23)
PROC: 0KQM0ZZ Repair Perineum Muscle, Open Approach (ICD-10-PCS; 2017-04-23)
DX: O70.1 Second degree perineal laceration during delivery (principal); Z37.0 Single live birth; O62.0 Primary inadequate contractions; Z3A.39 39 weeks gestation of pregnancy
CPT/HCPCS: 80307; 81001; 85025; 85461; 86850; 86900; 86901; 90384; J2590; J2790; J3105; J7120